=== PATIENT | male | born 1970 | race Caucasian/White ===

== ENCOUNTER 2021-05-24 07:15 | Inpatient (IN) | payer MEDICAID ==
[~2021-05-24 07:15] MED LIST: Dexamethasone 4 MG/ML SDV ONE; Glycopyrrolate 0.2 MG/ML 5 ML MDV ONE; Neostigmine Methylsulfate 1 MG/ML 5 ML Syringe ONE; Ondansetron 4 MG/2 ML SDV ONE; Propofol 200 MG/20 ML SDV ONE; Rocuronium 50 MG/5 ML Vial ONE; Succinylcholine 200 MG/10 ML MDV ONE; cefOXitin 2 GM Vial ONE; fentaNYL 250 MCG/5 ML SDV ONE
[2021-05-24] MEDS ORDERED: Acetaminophen 500 MG Tab PO ONE (07:30)
[2021-05-24] MEDS ORDERED: Scopolamine 1.5 MG Transdermal Patch TOP SCH (07:45)
[2021-05-24] MEDS: Celecoxib 200 MG Cap PO SCH ×2 (07:54→18:52)
[2021-05-24] MEDS: Dextrose 5%-Lactated Ringers 1,000 ML IV SCH ×4 (08:10→23:21)
[2021-05-24] MEDS ORDERED: fentaNYL 250 MCG/5 ML SDV ONE ×2 (09:30→10:58)
[2021-05-24] MEDS ORDERED: cefOXitin 2 GM in Sodium Chloride 0.9% 50 ML IV ONE (09:30)
[2021-05-24] MEDS ORDERED: Ketamine 50 MG in Sodium Chloride 0.9% 49.5 ML IV SCH (09:45)
[2021-05-24] MEDS ORDERED: Ketamine 500 MG/5 ML MDV IV SCH (09:45)
[2021-05-24] MEDS ORDERED: Rocuronium 50 MG/5 ML Vial ONE (10:45)
[2021-05-24] MEDS ORDERED: Meropenem 500 MG SDV ONE (11:09)
[2021-05-24] MEDS ORDERED: HYDROmorphone 0.5 MG/0.5 ML Syringe IVPUSH PRN (15:01)
[2021-05-24] MEDS ORDERED: HYDROmorphone 1 MG/ML Syringe IV PRN (15:02)
[2021-05-24] MEDS ORDERED: Calcium Gluconate 10% 1 GM/10 ML SDV IVPUSH PRN (16:00)
[2021-05-24] MEDS ORDERED: Labetalol 20 MG/4 ML Syringe IVPUSH PRN (16:00)
[2021-05-24] MEDS ORDERED: traMADol 50 MG Tab PO PRN (16:00)
[2021-05-24] MEDS ORDERED: Ondansetron 4 MG/2 ML SDV IVPUSH PRN (16:00)
[2021-05-24] MEDS ORDERED: Acetaminophen 500 MG Tab PO PRN (16:00)
[2021-05-24] MEDS ORDERED: diphenhydrAMINE 50 MG/ML SDV IVPUSH PRN (16:00)
[2021-05-24] MEDS ORDERED: hydrOXYzine HCL 100 MG/2 ML SDV IM PRN (16:00)
[2021-05-24] MEDS ORDERED: Metoclopramide 10 MG/2 ML SDV IVPUSH PRN (16:00)
[2021-05-24] MEDS: cefOXitin 2 GM in Sodium Chloride 0.9% 50 ML IV SCH ×2 (16:18→22:01)
[2021-05-24] MEDS: MVI, Adult with Vitamin K 10 ML, Thiamine 200 MG, Zinc/Copper/Manganese/Selenium 1 ML i... IV SCH ×4 (16:18)
[2021-05-24] MEDS: Pantoprazole 40 MG Vial IVPUSH SCH (16:18)
[2021-05-24] MEDS: Acetaminophen 500 MG Tab PO SCH ×2 (16:18→23:47)
[2021-05-24] MEDS: oxyCODONE 5 MG Tab PO PRN (17:34)
[2021-05-24] MEDS: Heparin Sodium 5,000 Units/ML Vial SUBCUT SCH (17:34)
[2021-05-24] MEDS: Cyclobenzaprine 10 MG Tab PO PRN (18:35)
[2021-05-25] MEDS ORDERED: Iopamidol 612 MG/ML 50 ML SDV PO STA (01:45)
[2021-05-25] MEDS: oxyCODONE 5 MG Tab PO PRN (02:17)
[2021-05-25] MEDS: Heparin Sodium 5,000 Units/ML Vial SUBCUT SCH ×2 (02:20→02:29)
[2021-05-25] MEDS: cefOXitin 2 GM in Sodium Chloride 0.9% 50 ML IV SCH ×4 (03:49→22:12)
[2021-05-25] MEDS: Dextrose 5%-Lactated Ringers 1,000 ML IV SCH (05:15)
[2021-05-25] MEDS ORDERED: Ondansetron 4 MG Tab.DIS PO PRN (06:42)
[2021-05-25] MEDS: Acetaminophen 500 MG Tab PO SCH ×3 (07:46→23:28)
[2021-05-25] MEDS: hydrOXYzine HCl 25 MG Tab PO PRN (07:46)
[2021-05-25] MEDS: Cyclobenzaprine 10 MG Tab PO PRN (08:48)
[2021-05-25] MEDS: Celecoxib 200 MG Cap PO SCH ×2 (08:50→22:23)
[2021-05-25] MEDS: SCOPOLAMINE PATCH CHECK TOP SCH (08:50)
[2021-05-25] MEDS: Sertraline 50 MG Tab PO SCH (08:53)
[2021-05-25] MEDS: buPROPion 150 MG Tab.ER PO SCH (08:53)
--- NOTE | 2021-05-25 09:07 | CR ---
UGI Limited HISTORY: Postbariatric surgery FINDINGS: Patient swallowed water-soluble contrast. Upright views of the abdomen show no evidence of extravasation or obstruction. There is a surgical drain in the left upper quadrant. IMPRESSION: Status post bariatric surgery No extravasation or obstruction seen
[2021-05-25] MEDS: Potassium Phos in 0.9 % NaCl 15 MMOL in Premix Bag 1 BAG IV SCH ×6 (11:23→18:16)
[2021-05-25] MEDS ORDERED: diphenhydrAMINE 50 MG/ML SDV IVPUSH PRN (11:50)
[2021-05-25] MEDS ORDERED: diphenhydrAMINE 25 MG Cap PO PRN (11:50)
[2021-05-25] MEDS ORDERED: Ondansetron 4 MG/2 ML SDV IVPUSH PRN (11:50)
[2021-05-25] MEDS ORDERED: Naloxone 0.4 MG/ML SDV IVPUSH PRN (11:50)
[2021-05-25] MEDS ORDERED: HYDROmorphone/Normal Saline 15 MG/30 ML PCA IV PRN (12:00)
[2021-05-25] MEDS: MVI, Adult with Vitamin K 10 ML, Thiamine 200 MG, Zinc/Copper/Manganese/Selenium 1 ML i... IV SCH ×4 (17:24)
[2021-05-25] MEDS: Pantoprazole 40 MG Vial IVPUSH SCH (17:25)
[2021-05-25] MEDS ORDERED: Lactated Ringers 750 ML IV ONE (20:53)
[2021-05-26] MEDS ORDERED: Iopamidol 612 MG/ML 50 ML SDV PO STA (03:58)
[2021-05-26] MEDS: cefOXitin 2 GM in Sodium Chloride 0.9% 50 ML IV SCH ×2 (04:15→10:39)
--- NOTE | 2021-05-26 07:17 | PN ---
DATE OF SERVICE: 05/25/2021 SUBJECTIVE: Vahe is postop day 1. His upper GI was normal. He has been up ambulating, has not used his incentive spirometer yet. Oral intake 790, urine output via Devi catheter is 1780. ZABRINA drain put out 400 mL of a light red drainage. Vital signs have been stable. He has had quite a bit of pain in his left shoulder and chest, it improved with passing some flatus. He has been sleeping in the chair since around 2 a.m. He has had Flexeril, oxycodone, IV Dilaudid, and tramadol in addition to the routine energy protocol. Remainder of review of systems negative for any pertinent positives and negatives. OBJECTIVE: GENERAL: Vahe is a pleasant 50-year-old male. He is sitting up in the chair, sleeping. VITAL SIGNS: TPR 95, 91, 16. Blood pressure 142/61. HEENT: Negative. NECK: Supple. HEART: Regular rate and rhythm. LUNGS: Clear. ABDOMEN: Dressing dry and intact. ZABRINA drain is light red in color, amount as noted. Abdominal binder is on. EXTREMITIES: Without peripheral edema. ASSESSMENT: Diagnostic laparoscopy with: 1. Laparoscopic duodenal switch. 2. Liver biopsy. 3. Repair of diaphragmatic hernia. 4. Excision of substernal lipoma. 5. Small-bowel strictureplasty. POSTOPERATIVE DIAGNOSES: 1. Morbid obesity. 2. Hepatomegaly. 3. Diaphragmatic hernia. 4. Mediastinal lipoma. 5. Small bowel stricture. 6. Date of procedure: 05/24/2021. Surgeon: Mannie Pennington MD. PLAN: 1. Discontinue Devi catheter. 2. Decrease IV to 100 mL per hour. 3. Step 2 gastric bypass diet with no cereal. 4. Discontinue Devi catheter. 5. Discontinue heparin. 6. K-Phos 45 millimoles IV one time. 7. Discontinue continuous pulse ox. 8. Discontinue telemetry. 9. Atarax 50 mg q.4 hours p.r.n. pain. 10.Communication order, 3 med cups per hour, one q.20 minutes, record at bedside. 11.Stressed the importance of using incentive spirometer 10 times every hour while awake to avoid pneumonia. 12.Ambulate at least 6 times daily. 13.We will evaluate p.r.n. or in a.m. Dilcia Moreno PA-C /[id number]
[2021-05-26] MEDS: Dextrose 5%-Lactated Ringers 1,000 ML IV SCH ×2 (08:00→23:50)
--- NOTE | 2021-05-26 08:02 | PN ---
DATE OF SERVICE: 05/26/2021 SUBJECTIVE: Vahe had an episode of severe pain yesterday in that left upper shoulder. He was started on a REPRODUCTIVE ENDOCRINOLOGIST, had an upper GI this morning, it was negative. Had 1 L of LR bolus. His urine output increased after that. Oral intake was 1190, output 550 that was recorded. ZABRINA drain put out 135 mL of a light red drainage. He is using Dilaudid REPRODUCTIVE ENDOCRINOLOGIST and states his pain is controlled. REVIEW OF SYSTEMS: Remainder of review of systems negative for any pertinent positives and negatives. OBJECTIVE: GENERAL: Vahe is a 50-year-old male. He is quite sleepy. VITAL SIGNS: TPR is 94.9, 93, 18, blood pressure 116/56. HEENT: Negative. NECK: Supple. HEART: Regular rate and rhythm. LUNGS: Clear. ABDOMEN: Dressings dry and intact. Abdominal binder is on. ZABRINA drain as above. EXTREMITIES: Without peripheral edema. ASSESSMENT: Diagnostic laparoscopy with: 1. Laparoscopic duodenal switch. 2. Liver biopsy. 3. Repair of diaphragmatic hernia. 4. Excision of mediastinal lipoma. 5. Small bowel strictureplasty. POSTOPERATIVE DIAGNOSES: 1. Morbid obesity. 2. Hepatomegaly. 3. Diaphragmatic hernia. 4. Mediastinal lipoma. 5. Small bowel strictureplasty. PLAN: 1. Discontinue REPRODUCTIVE ENDOCRINOLOGIST. 2. Discontinue continuous pulse ox. 3. Step 2 gastric bypass diet without cereal. 4. Dilaudid 2 to 4 mg q.4 hours p.r.n. pain. 5. Ambulation encouraged short distances at least 6 times daily. 6. Use incentive spirometer 10 times every hour while awake. 7. When the patient will be discharged, will be given Lovenox [address] home and 100 of Lovenox for his postop appointment back to [facility]. 8. We will evaluate p.r.n. or in a.m. Dilcia Moreno PA-C /[id number]
[2021-05-26] MEDS ORDERED: Cyanocobalamin (Vitamin B12) 1,000 MCG/ML SDV IM ONE (09:00)
[2021-05-26] MEDS: HYDROmorphone 2 MG Tab PO PRN ×4 (09:16→23:53)
[2021-05-26] MEDS: Acetaminophen 500 MG Tab PO SCH ×3 (09:17→23:50)
[2021-05-26] MEDS: Celecoxib 200 MG Cap PO SCH ×2 (09:18→21:28)
[2021-05-26] MEDS: Sertraline 50 MG Tab PO SCH (09:18)
[2021-05-26] MEDS: SCOPOLAMINE PATCH CHECK TOP SCH (09:18)
[2021-05-26] MEDS: buPROPion 150 MG Tab.ER PO SCH (09:18)
--- NOTE | 2021-05-26 09:43 | CR ---
UGI Limited HISTORY: Postbariatric surgery FINDINGS: Patient swallowed water-soluble contrast. Upright views of the abdomen show no evidence of extravasation or obstruction. There is a surgical drain in the left upper quadrant. There is contrast in the right colon from prior study. IMPRESSION: Status post bariatric surgery No extravasation or obstruction seen
[2021-05-26] MEDS ORDERED: Pantoprazole 40 MG Delayed-Release Granules 1 Packet PO SCH (16:30)
[2021-05-26] MEDS ORDERED: Tranexamic Acid 1,000 MG in Sodium Chloride 0.9% 50 ML IV ONE (21:38)
[2021-05-26] MEDS ORDERED: Coagulation Factor VIIa Recombinant (per MCG) 2 MG Vial IVPUSH ONE (21:50)
[2021-05-26] MEDS ORDERED: Furosemide 20 MG/2 ML VIAL IVPUSH ONE (22:38)
[2021-05-27] MEDS: HYDROmorphone 2 MG Tab PO PRN ×5 (04:00→21:12)
[2021-05-27] MEDS: hydrOXYzine HCl 25 MG Tab PO PRN ×3 (04:00→19:31)
[2021-05-27] MEDS ORDERED: Tranexamic Acid 1,000 MG in Sodium Chloride 0.9% 50 ML IV ONE ×2 (06:51→07:48)
[2021-05-27] MEDS ORDERED: Albuterol/Ipratropium 3.0-0.5 MG/3 ML Neb Soln NEB PRN (07:56)
[2021-05-27] MEDS ORDERED: Albuterol/Ipratropium 3.0-0.5 MG/3 ML Neb Soln NEB ONE (08:00)
[2021-05-27] MEDS: Acetaminophen 500 MG Tab PO SCH ×3 (08:21→23:45)
[2021-05-27] MEDS: buPROPion 150 MG Tab.ER PO SCH (08:45)
[2021-05-27] MEDS: Sertraline 50 MG Tab PO SCH (08:45)
[2021-05-27] MEDS: Celecoxib 200 MG Cap PO SCH ×2 (08:45→21:12)
--- NOTE | 2021-05-27 08:53 | CR ---
CHEST: 2 view CLINICAL HISTORY:Postop, short of breath COMPARISON:None FINDINGS: Heart size and pulmonary vascularity are normal. There are streaky and patchy density in both infrahilar regions bilaterally. This is similar to a upright abdominal image on 05/26/2021 there may be some minimal improvement. There are atherosclerotic changes in the aorta. IMPRESSION: This are some patchy and streaky densities in both lung bases. This may represent some postop atelectasis. Minimal infiltrate is felt less likely but not excluded No effusion
[2021-05-27] MEDS ORDERED: Coagulation Factor VIIa Recombinant (per MCG) 2 MG Vial IVPUSH ONE (09:00)
--- NOTE | 2021-05-27 09:32 | PN ---
DATE OF SERVICE: 05/27/2021 SUBJECTIVE: Vahe is postop day #3. Last evening, he had increase in shortness of breath and his ZABRINA drain remained to be draining red drainage, so he was given tranexamic acid 1 g IV and Factor VII 2000 mg IV. This morning, his hemoglobin is 9.7. Oral intake was 3060. Urine output was 500 recorded plus voids. ZABRINA drain put out 500 mL of a dark red drainage. He reports a headache behind his eyes, and last night had some blurred vision. He states the blurred vision is not too bad this morning. Continues to report left chest and shoulder pain which increases with taking a deep breath and movement. States that it is a 7/10. He is taking Tylenol 1000 mg every 8 hours, Celebrex 200 twice daily, Flexeril 10 mg, and Dilaudid 2 to 4 mg every 4 hours. He did have Vistaril 100 mg IM and an oral dose of hydroxyzine 50 mg 1 time for pain. Reports an increased shortness of breath, which he voiced quite a bit of concern about and he is using his incentive spirometer and he is walking as much as he is able. His states that he tries to walk, but then is dizzy and weak and short of breath. REVIEW OF SYSTEMS: Remainder of review of systems negative for any pertinent positives and negatives. OBJECTIVE: GENERAL: Vahe is a pleasant 50-year-old male. He is alert and orientated, but quite quiet. VITAL SIGNS: TPR 98.4, 76, 16, pulse oximetry 96% on 2 L of O2 per nasal cannula. HEENT: Negative. NECK: Supple. HEART: Regular rate and rhythm. LUNGS: Revealed decreased breath sounds. Some rales are heard in the left base with pain in taking a deep breath. It is hard to really hear. The breath sounds were not optimal. ABDOMEN: Negative. ZABRINA drain as above. Dressings are on. There is some pink drainage noted on the dressing around the left ZABRINA drain site. Abdominal binder is on. EXTREMITIES: Revealed trace peripheral edema. ASSESSMENT: 1. Shortness of breath. 2. Persistent left chest and shoulder pain. 3. New headache. 4. Diagnostic laparoscopy with: a. Laparoscopic duodenal switch. b. Liver biopsy. c. Repair of diaphragmatic hernia. d. Excision of mediastinal lipoma. e. Small bowel strictureplasty. POSTOPERATIVE DIAGNOSES: 1. Morbid obesity. 2. Hepatomegaly. 3. Diaphragmatic hernia. 4. Mediastinal lipoma. 5. Small bowel strictureplasty. 6. Date of procedure: 05/24/2021. Mannie Pennington MD. PLAN: 1. Check chest x-ray PA and lateral. 2. DuoNebs q.6 hours scheduled and p.r.n. shortness of breath. 3. Tranexamic acid 1 g IV now, followed by. 4. Factor VII 2000 mg IV. 5. Decrease IV to 60 mL per hour. 6. Check chest x-ray PA and lateral. 7. Continue to ambulate and use incentive spirometer. 8. We will evaluate p.r.n. or in a.m. Dilcia Moreno PA-C /[id number]
[2021-05-27] MEDS: Albuterol/Ipratropium 3.0-0.5 MG/3 ML Neb Soln NEB SCH ×2 (12:32→19:31)
[2021-05-27] MEDS: Dextrose 5%-Lactated Ringers 1,000 ML IV SCH (13:28)
[2021-05-27] MEDS: Bisacodyl 5 MG Tab PO SCH ×2 (15:34→21:11)
[2021-05-27] MEDS: Magnesium Hydroxide 400 MG/5 ML Susp 30 ML Cup PO SCH ×2 (15:35→21:12)
[2021-05-27] MEDS ORDERED: Pantoprazole 40 MG Vial IV SCH (16:30)
[2021-05-28] MEDS: Albuterol/Ipratropium 3.0-0.5 MG/3 ML Neb Soln NEB SCH ×2 (01:58→07:15)
[2021-05-28] MEDS: HYDROmorphone 2 MG Tab PO PRN ×3 (02:03→09:42)
[2021-05-28] MEDS: Dextrose 5%-Lactated Ringers 1,000 ML IV SCH (05:41)
[2021-05-28] MEDS: Magnesium Hydroxide 400 MG/5 ML Susp 30 ML Cup PO SCH (09:43)
[2021-05-28] MEDS: Celecoxib 200 MG Cap PO SCH (09:43)
[2021-05-28] MEDS: Acetaminophen 500 MG Tab PO SCH (09:43)
[2021-05-28] MEDS: Sertraline 50 MG Tab PO SCH (09:44)
[2021-05-28] MEDS: Bisacodyl 5 MG Tab PO SCH (09:44)
[2021-05-28] MEDS: buPROPion 150 MG Tab.ER PO SCH (09:44)
--- NOTE | 2021-05-29 10:12 | DISCH ---
ADMISSION DIAGNOSES: 1. Morbid obesity, BMI 54.6. 2. Dyslipidemia. 3. Mild episode of recurrent major depression. HISTORY: Vahe Pearson is a pleasant 50-year-old male with longstanding history of morbid obesity and increasing comorbidities. After preoperative evaluation and discussion of possible risks and possible complications, he wished to proceed with surgical procedure. HOSPITAL COURSE: Vahe had his surgery on 05/24/2021. He had difficulty with pain management and he had most of his pain in his left upper shoulder blade. He was given Flexeril, oxycodone, IV Dilaudid, and tramadol in addition to the routine energy protocol and nothing seemed to help his pain. On 05/25/2021, he was given tranexamic acid 1 g and Factor VII 200 mcg IV. He received another dose on 05/26/2021, and a third dose on 05/27/2021. He has had an increased amount of pain with taking a deep breath. Chest x-ray was done. He was started on DuoNebs and it did seem to make a difference. Vahe was started on oral pain medication of Dilaudid along with his Tylenol and Celebrex. Labs this morning, hemoglobin went from 12.9 to 10.9 to 9.7 and 8.8. Electrolytes remained within normal limits. Bilirubin was slightly elevated on 05/27/2021 at 1.3. Vahe had better pain control. Activity was good. Oral intake adequate. Output was adequate. Afebrile, up ambulating. He was able to be discharged to home on 05/28/2021. PHYSICAL EXAMINATION: GENERAL: Vahe Pearson is a pleasant 50-year-old male. VITAL SIGNS: Height is 6 feet 1 inch, weight is 414 pounds, BMI 54.6. TPR is 98.2, 67, 18, blood pressure 128/60. HEENT: Negative. NECK: Supple. HEART: Regular rate and rhythm. LUNGS: Clear. ABDOMEN: Soft, nontender. ZABRINA drain will be removed. Abdominal binder is on. EXTREMITIES: Without peripheral edema. DISPOSITION: Discharged to home. CONDITION: Stable and improving. HOME MEDICATIONS: 1. Dilaudid 2 mg p.o. q.4 hours p.r.n. pain, #12. 2. Celebrex 200 mg p.o. b.i.d., #28. 3. Tylenol Extra Strength 500 mg take 2 p.o. q.6 hours p.r.n. mild pain. 4. Zofran ODT 4 mg p.o. q.4 hours p.r.n. nausea. FOLLOWUP APPOINTMENT: With Dilcia Moreno PA-C, on 06/03/2021 at 11 a.m., and he is to have a CBC, CMP prior to that appointment. DIET: Step 2 gastric bypass diet with no cereal until 06/25/2021, and to drink 8 to 10 glasses of water a day. ACTIVITY: No lifting greater than 10 pounds for 2 weeks. Walk at least 6 times daily inside your home. Driving: Do not drive for 1 week. DISCHARGE INSTRUCTIONS: Shower/bathing: May shower. Wound incision care: Keep operative site clean and dry. Wear abdominal binder for 2 weeks and then as tolerated. Notify provider if any fever, increased pain, swelling, redness, drainage, nausea, vomiting, and use incentive spirometer 10 times every hour while awake. /[id number]
--- NOTE | 2021-05-31 12:44 | OR ---
DATE OF PROCEDURE: 05/24/2021 SURGEON: Mannie Pennington MD PREOPERATIVE DIAGNOSIS: Morbid obesity. POSTOPERATIVE DIAGNOSES: 1. Morbid obesity. 2. Marked hepatomegaly. 3. Paraesophageal diaphragmatic hernia. 4. Mediastinal lipoma. 5. Small bowel stricture where small bowel was adherent to previously placed periumbilical mesh. OPERATIVE PROCEDURES: Diagnostic laparoscopy with: 1. Laparoscopic duodenal switch (39256). 2. Pako-Cut needle liver biopsy (57854). 3. Repair of paraesophageal diaphragmatic hernia (40124). 4. Excision of mediastinal lipoma (37720). 5. Small bowel strictureplasty (27496). ANESTHESIA: General. MOTOR EQUIPMENT SERGEANT: Dilcia Moreno PA-C. INDICATIONS FOR PROCEDURE: This is a 50-year-old presenting with longstanding morbid obesity and increasingly significant comorbidities. After preoperative evaluation and discussion, he wished to proceed with a duodenal switch. Potential risks including bleeding, infection, leaks from various GI tract closures, problems with bowel obstruction over time as well as possibility of cardiopulmonary, septic, or hemorrhagic complications leading to were discussed, and the patient wishes to proceed. DESCRIPTION OF PROCEDURE: The patient was taken to the operating room. After general endotracheal anesthesia was induced, a Devi catheter was inserted and the abdomen prepped and draped. The patient was placed into a lithotomy position. 20 cm inferior and 5 cm left of the xiphoid process, a transverse incision was made and the peritoneal cavity entered under direct vision with an Optiview trocar, inflated 15 mmHg pressure of CO2. Laparoscope was then reinserted. No underlying trocar insertion site injuries were seen. Bilateral transversus abdominis plane blocks were placed, following which 6 additional trocars were placed across the upper and mid abdomen. The patient was noted to have a markedly enlarged liver which was grossly fatty infiltrated. Pako-Cut needle biopsy was obtained from the left lobe of liver. Minimal bleeding from the biopsy site was controlled with electrocautery. At this point, the patient was noted to have quite a bit in the way of adhesions between the periumbilical mesh, which was used for previous hernia repair at that site. These were primarily to the omentum. This area was taken down with Harmonic scalpel and skin luis felipe. There was 1 adherent area of small-bowel. This appeared to be relatively mid to proximal small bowel and the plan is to take down with sharp dissection. He was noted to have a stricture in it. This was corrected by means of antimesenteric opening at the point of stricturing and single internal firing of the Endo-ELODIA 60 mm stapler. Common opening was then closed transversely with the same stapler. In this case, there was no mesenteric defect, and the angles anastomosed and reinforced with some 3-0 silk stitch and fibrin sealant. At this point, the small bowel was then successfully freed up and was identified at the ileocecal valve and traced back 300 cm proximal to that point. This was then noted to be mobile enough to easily come up to the duodenum and this confirmed that we would likely be able to complete the duodenal switch in 1 stage. The liver was then retracted anteriorly. The patient was noted to have moderate-sized paraesophageal diaphragmatic hernia. This contained some perigastric fat along with some omentum. The hernia was reduced. The peritoneum overlying was incised downward. During the course of dissection, mediastinal lipoma was encountered and this was excised to facilitate more adequate crural repair, which was accomplished with some 0 Ethibond sutures placed anteriorly with 0 Ethibond stitch reinforced with PTFE pledgets. The pyloric channel was then marked with electrocautery, and the omentum was then initially divided in the mid greater curvature with Harmonic Scalpel. This then progressed proximally across the short gastric vessels including the highest and posterior short gastric vessels. The stomach was then dissected free from the left crura to avoid any cul-de-sac of stomach in that area. The dissection continued distally across the level of pylorus and then 4 cm distal to it, again with Harmonic scalpel. The sleeve gastrectomy phase was then initiated with marking of the antrum beginning 6 cm proximal to the pylorus coming across the incisura angularis without overly tightening that and then entered the area of the lesser curvature. After these cautery [place] were placed, first 3 firings were with ELODIA unreinforced black loads. At that point, a 40-Mongolian chest tube was placed orally per Anesthesia, positioned along the lesser curvature of the stomach. Remainder of the sleeve gastrectomy stapling was then accomplished with reinforced black loads, and at that point, the resectional phase appeared to be satisfactorily completed and the resected stomach was placed off to the side. At this point, dissection 4 cm distal to the pylorus was accomplished posteriorly and the duodenum then divided 4 cm distal to the pylorus with reinforced purple load using a ELODIA 45 mm stapler. Then, some of the lesser omentum and the area around the proximal duodenum and pelvis was divided, which allowed further dropping down of duodenum to provide a lesser amount of tension at the subsequent duodenal ileostomy. The small bowel was then 300 cm proximal to the ileocecal valve was sutured. Initially, the superior aspect was divided in the proximal duodenum with 3-0 Vicryl stitch and entered the inferior aspect thus bringing the ileum and the divided proximal duodenum [id number]. One additional stitch just inferior to the lower stitch was then placed to facilitate manipulation of the anastomosis during its construction. Small openings were then made in the inferior aspect of the duodenum and adjacent ileum, and a 3 mm ELODIA carmona load was then placed into the area of the anastomosis and this was then fired. The common opening was then closed with 3 sutures. These were stay sutures, 1 superior, 1 in the middle, and 1 in the inferior aspect of the common opening. These were then lifted and the area closed with a ELODIA purple load. That latter staple line was reinforced with seromuscular 3-0 Vicryl stitch. Fibrin sealant was then applied around the anastomosis and then 2 additional sutures between the more proximal ileum and adjacent antrum and then omentum were placed to facilitate a distal direction flow of the ingested food coming out of the duodenum. We felt at this point that the mesentery was tight enough that subsequent conversion to a Amilcar-en-Y type configuration would be contraindicated as it would put the present duodenal ileostomy at risk for increased tension and leak, and this portion was then withheld knowing that it could be done at a later stage if necessary. Following this, the leak test was accomplished with injection of air into the sleeve gastrectomy. Air was noted to flow across the duodenal ileostomy into the ileum and no leaks were noted along the sleeve gastrectomy staple line, which at that point had been covered with fibrin sealant as well. The stomach specimen was then removed and the area of dissection was inspected. Throughout the case, the patient had somewhat more oozing from the staple lines and as such than what would be typical, but at this point, there appeared to be good hemostasis in all areas and a single Leonard-Ramirez drain was taken out through the left lateral trocar site after the stomach specimen had been removed and positioned around the esophagogastric junction and from there up into the splenic fossa. The trocars were then sequentially removed and peritoneal cavity deflated. Incisions were closed with some 4-0 Vicryl stitch and the drain was fixed with 4-0 Vicryl stitch as well. The patient was taken to the recovery room in satisfactory condition. Physician accounts receivable assistant, Dilcia Moreno, played an essential role in assisting in this case, helping to position the patient, retract structures as needed, as well as suturing and cutting sutures when indicated. Her presence improved patient safety and decreased operative time. Mannie Pennington MD /[id number]
== END 2021-05-28 10:45 | disposition home or self-care (01) | DRG 327 ==
LOC: EDSTATUS 07:15 → JP.SDS 07:26 → JP.SDSSCHI 13:30 → JP.MS 13:31
PROVIDERS: ADMIT Surgery; ATTEND Surgery
PROC: 0WBC4ZZ Excision of Mediastinum, Percutaneous Endoscopic Approach (ICD-10-PCS; principal; 2021-05-24)
PROC: 0FB24ZX Excision of Left Lobe Liver, Percutaneous Endoscopic Approach, Diagnostic (ICD-10-PCS; principal; 2021-05-24)
PROC: 0DQ84ZZ Repair Small Intestine, Percutaneous Endoscopic Approach (ICD-10-PCS; principal; 2021-05-24)
PROC: 0BQT4ZZ Repair Diaphragm, Percutaneous Endoscopic Approach (ICD-10-PCS; principal; 2021-05-24)
PROC: 0D194ZB Bypass Duodenum to Ileum, Percutaneous Endoscopic Approach (ICD-10-PCS; principal; 2021-05-24)
DX: K44.9 Diaphragmatic hernia without obstruction or gangrene (principal); F33.0 Major depressive disorder, recurrent, mild; K56.699 Other intestinal obstruction unspecified as to partial versus complete obstruction; Z68.43 Body mass index [BMI] 50.0-59.9, adult; E66.01 Morbid (severe) obesity due to excess calories; E78.5 Hyperlipidemia, unspecified; R06.02 Shortness of breath; R16.0 Hepatomegaly, not elsewhere classified; D17.79 Benign lipomatous neoplasm of other sites; R51.9 Headache, unspecified; R07.9 Chest pain, unspecified; M25.512 Pain in left shoulder
CPT/HCPCS: 36415; 71046; 71046-26; 74240; 74240-26; 80053; 82947; 83735; 83880; 84100; 85025; 85027; 86850; 86900; 86901; 88304; 88305; 88307; 88313; 94640; 94762; A9270-GY; C9113; J0171; J0330; J0694; J1100; J1170; J1644; J1940; J2185; J2405; J2704; J2710; J2795; J3010; J3410; J3411; J3420; J3475; J3490; J7050; J7120; J7121; J7189; J7620-GY; Q9967

== ENCOUNTER 2021-06-07 11:51 | Inpatient (IN) | payer MEDICAID ==
[2021-06-07] MEDS ORDERED: Iopamidol 612 MG/ML 50 ML SDV PO ONE (12:44)
[2021-06-07] MEDS ORDERED: Iopamidol 612 MG/ML 150 ML Bottle IV ONE (12:45)
[2021-06-07] MEDS ORDERED: Acetaminophen 325 MG Tab PO PRN (13:01)
[2021-06-07] MEDS ORDERED: Acetaminophen 650 MG Supp RECTAL PRN (13:02)
--- NOTE | 2021-06-07 13:49 | CT ---
Abdomen Pelvis w Cont CLINICAL HISTORY: Abdominal abscess, status post duodenal switch COMPARISON: 05/31/2021. TECHNIQUE: Transverse scans were obtained from the base of the lungs to the pubic symphysis following oral contrast and IV infusion of contrast.Auto dosage reduction and iterative reconstructiontechniques employed. FINDINGS: Just above the umbilicus near the distal anastomosis is a 3.2 x 6.7 x 4.7 cm fluid collection. There is an air-fluid level within the small amount of air anteriorly. Fluid is accumulated since the prior study. The lung bases are clear. The liver is free of mass or biliary dilatation. The gallbladder has a normal appearance. The spleen has a normal size and shape. The pancreas shows no mass or inflammatory change.. The adrenal glands appear normal . The kidneys show no mass, stones or hydronephrosis. The ureters have normal course and contour. The bladder has a normal appearance The aorta has a normal contour. There is no suspicious retroperitoneal adenopathy. IMPRESSION: Increasing anterior abdominal fluid collection with air-fluid level just above the umbilicus abutting the anterior peritoneum. This is suspect for postoperative abscess near the distal anastomosis.
[2021-06-07] MEDS: Pantoprazole 40 MG Vial IV SCH ×2 (13:53→22:01)
[2021-06-07] MEDS: Sodium Chloride 0.9% 10 ML Syringe FLUSH ONE ×2 (13:54→16:12)
[2021-06-07] MEDS ORDERED: MVI, Adult with Vitamin K 10 ML in Lactated Ringers 1,000 ML IV ONE ×2 (14:00)
[2021-06-07] MEDS: Meropenem 500 MG in Sodium Chloride 0.9% 50 ML IV SCH ×2 (14:02→19:57)
[2021-06-07] MEDS ORDERED: Lidocaine 1% 20 ML MDV INJECT ONE (14:25)
--- NOTE | 2021-06-07 15:27 | PCM.HP.2 ---
H&P History of Present Illness - General Date of Service: 06/07/21 Admit Problem/Dx: Admission Diagnosis/Problem Admission Diagnosis/Problem Abdominal abscess Source of Information: Patient History Limitations: Reports: No Limitations - History of Present Illness Initial Comments - Free Text/Narative: Vahe had a Duodenal Switch on 05/24/2021 complicated by post op bleeding. He was given Tranexamic acid 1 gram and Factor VII mcg IV the night of surgery. he recieved another dose on 05/25/2021 and a third dose on 05/27/2021. Hemoglobin went from 12.9 to 10.9, 9.7 tro 8.8. Biliruben was elevated at 1.3. Vahe was discharged to home on 05/28/21 and did very well until 05/31/2021 when he developed severe right middle and right lower abdominal pain. After going to the closest ED he was admitted to the [facility] on until , 06/03/2021. He was hospitalized for intra abdominal abscess and IV fluids. Since getting discharged from the hospital he states he is getting IV antibiotics at home through his PIC line once daily. Very nauseated, not eating or drinking, smells make him gag and he has diarrhea 5 stools daily. Denies abdominal pain. states he is having some mid epigastric pain and shortness of breath. Abdominal Pain Score (Numeric/FACES): 3 - Related Data Allergies/Adverse Reactions: Allergies Allergy/AdvReac Type Severity Reaction Status Date / Time No Known Allergies Allergy Verified 05/24/21 07:56 Home Medications: Home Meds Sertraline [Zoloft] 100 mg PO DAILY 05/18/21 [History] atorvaSTATin [Lipitor] 40 mg PO BEDTIME 05/18/21 [History] buPROPion HCL [Bupropion Xl] 150 mg PO DAILY 05/18/21 [History] Acetaminophen [Tylenol Extra Strength] 500 mg PO Q6H PRN #1 bottle 05/28/21 [Rx] HYDROmorphone [Dilaudid] 2 mg PO Q4H PRN #12 tablet 05/28/21 [Rx] Ondansetron [Zofran ODT] 4 mg PO Q4H PRN #30 tab.dis 05/28/21 [Rx] Past Medical History - Past Health History Medical/Surgical History: Denies Medical/Surgical History Cardiovascular History: Reports: High Cholesterol, Hypertension Gastrointestinal History: Reports: Other (See Below) Other Gastrointestinal History: gastric ulcers Psychiatric History: Reports: Anxiety, Depression Endocrine/Metabolic History: Reports: Obesity/BMI 30+ - Infectious Disease History Infectious Disease History: Reports: Chicken Pox - Past Surgical History GI Surgical History: Reports: Hernia, Abdominal Social & Family History - Family History Family Medical History: No Pertinent Family History Cardiac: Reports: Heart Failure - Tobacco Use Tobacco Use Status *Q: Former Tobacco User Used Tobacco, but Quit: No - Caffeine Use Caffeine Use: Reports: None - Recreational Drug Use Recreational Drug Use: No H&P Review of Systems - Review of Systems: Review Of Systems: See Below General: Reports: Weakness, Fatigue, Decreased Appetite HEENT: Reports: No Symptoms Pulmonary: Reports: No Symptoms Cardiovascular: Reports: Dyspnea on Exertion Gastrointestinal: Reports: Diarrhea, Decreased Appetite, Nausea Genitourinary: Reports: No Symptoms Musculoskeletal: Reports: No Symptoms Skin: Reports: No Symptoms Psychiatric: Reports: Depression, Mood Lability Neurological: Reports: Dizziness, Weakness Hematologic/Lymphatic: Reports: Anemia, Easy Bleeding Immunologic: Reports: No Symptoms Exam - Exam Exam: See Below - Vital Signs Vital Signs: Last Vital Signs Temp 98.5 F 06/07/21 12:46 Pulse 75 06/07/21 12:46 Resp 18 06/07/21 12:46 BP 150/72 H 06/07/21 12:46 Pulse Ox 99 06/07/21 12:46 Weight: 381 lb - Exam Quality Assessment: Central Line/PICC (right upper arm ) General: Moderate Distress HEENT: PERRLA, Hearing Intact Neck: Supple, Trachea Midline Lungs: Clear to Auscultation, Normal Respiratory Effort Cardiovascular: Regular Rate, Regular Rhythm GI/Abdominal Exam: Soft, No Distention, Tender (in all 4 quadrants ) (Male) Exam: Deferred Rectal (Males) Exam: Deferred Back Exam: Normal Inspection, Full Range of Motion Extremities: Normal Inspection, Normal Range of Motion, Non-Tender, No Pedal Edema Skin: Warm, Dry, Intact Neurological: Cranial Nerves Intact, Reflexes Equal Bilateral Neuro Extensive - Mental Status: Alert, Oriented x3, Normal Mood/Affect, Normal Cognition Neuro Extensive - Motor, Sensory, Reflexes: CN II-XII Intact, Normal Gait Psychiatric: Labile Mood, Depressed - Patient Data Lab Results Last 24 hrs: Laboratory Results - last 24 hr 06/07/21 06/07/21 Range/Units 12:23 12:23 WBC 13.8 H (4.5-11.0) K/uL RBC 4.22 L (4.30-5.90) M/uL Hgb 11.3 L D (12.0-15.0) g/dL Hct 35.9 L (40.0-54.0) % MCV 85 (80-98) fL MCH 27 (27-31) pg MCHC 32 (32-36) % Plt Count 530 H (150-400) K/uL Neut % (Auto) 74.6 H (36-66) % Lymph % (Auto) 15.5 L (24-44) % Callahan % (Auto) 7.2 H (2-6) % Eos % (Auto) 2.0 (2-4) % Baso % (Auto) 0.7 (0-1) % Sodium 142 (140-148) mmol/L Potassium 3.6 (3.6-5.2) mmol/L Chloride 104 (100-108) mmol/L Carbon Dioxide 26 (21-32) mmol/L Anion Gap 11.7 (5.0-14.0) mmol/L BUN 16 (7-18) mg/dL Creatinine 1.1 (0.8-1.3) mg/dL Est Cr Clr Drug Dosing 92.81 mL/min Estimated GFR (MDRD) > 60 (>60) Glucose 91 (74-106) mg/dL Calcium 8.6 (8.5-10.1) mg/dL Phosphorus 2.6 (2.5-4.9) mg/dL Magnesium 2.1 (1.8-2.4) mg/dL Total Bilirubin 0.8 (0.2-1.0) mg/dL AST 40 H D (15-37) U/L ALT 57 (12-78) U/L Alkaline Phosphatase 87 (46-116) U/L Total Protein 7.5 (6.4-8.2) g/dL Albumin 2.7 L (3.4-5.0) g/dL Globulin 4.8 H (2.3-3.5) g/dL Albumin/Globulin Ratio 0.6 L (1.2-2.2) Result Diagrams: 07/26/21 12:23 06/07/21 12:23 Sepsis Event Note - Evaluation Sepsis Screening Result: No Definite Risk - Focused Exam Vital Signs: Vital Signs Temp Pulse Resp BP Pulse Ox 06/07/21 12:46 98.5 F 75 18 150/72 H 99 - Problem List (1) Abdominal abscess SNOMED Code(s): 71925755 ICD Code: LZV9531 - Status: Acute Current Visit: Yes (2) S/P biliopancreatic diversion with duodenal switch SNOMED Code(s): 169427303 ICD Code: Z98.84 - BARIATRIC SURGERY STATUS Status: Acute Current Visit: Yes (3) Anxiety and depression SNOMED Code(s): 604653805 ICD Code: F41.9 - ANXIETY DISORDER, UNSPECIFIED; F32.9 - MAJOR DEPRESSIVE DISORDER, SINGLE EPISODE, UNSPECIFIED Status: Acute Current Visit: Yes Problem List Initiated/Reviewed/Updated: Yes Orders Last 24hrs: Active Orders 24 hr Category Date Time Status Patient Status [ADT] Routine ADT 06/07/21 11:45 Active Ambulate [RC] ASDIRECTED Care 06/07/21 12:09 Active Bariatric Diet [DIET] Diet 06/07/21 Dinner Active Drain Visceral Fluid Perc Cath [CT] Routine Exams 06/07/21 Ordered Guide [CT] Routine Exams 06/07/21 Ordered COVID-19/FLU A+B/RSV [MOLEC] Routine Lab 06/07/21 12:17 Ordered CULTURE BLOOD [BC] Routine Lab 06/07/21 12:23 Received CULTURE BLOOD [BC] Routine Lab 06/07/21 12:37 Received GRAM STAIN [RM] Routine Lab 06/07/21 14:23 Ordered Acetaminophen [TylenoL] Med 06/07/21 13:01 Active 650 mg PO Q4H PRN Acetaminophen [Tylenol] Med 06/07/21 13:02 Active 650 mg RECTAL Q4H PRN Aztreonam [Azactam] 1 gm Med 06/07/21 14:00 Active Sodium Chloride 0.9% [Normal Saline] 50 ml IV Q8H Dextrose 5%-Lactated Ringers 1,000 ml Med 06/07/21 12:30 Active IV ASDIRECTED MVI, Adult with Vitamin K [Infuvite Adult] 10 ml Med 06/07/21 14:00 Active Lactated Ringers [Ringers, Lactated] 1,000 ml IV ONETIME Meropenem [Merrem] 500 mg Med 06/07/21 13:00 Active Sodium Chloride 0.9% [Normal Saline] 50 ml IV Q6H Ondansetron [Zofran] Med 06/07/21 12:36 Active 4 mg IVPUSH Q4H PRN Pantoprazole [ProTONIX IV] Med 06/07/21 13:00 Active 40 mg IV BID Sequential Compression Device [OM.PC] Routine Oth 06/07/21 12:09 Ordered Resuscitation Status Routine Resus Stat 06/07/21 12:09 Ordered Medication Orders Acetaminophen (Acetaminophen 325 Mg Tab) 650 mg PO Q4H PRN PRN Reason: MILD PAIN/FEVER Acetaminophen (Acetaminophen 650 Mg Supp) 650 mg RECTAL Q4H PRN PRN Reason: PAIN/FEVER Dextrose/Lactated Ringer's (Dextrose 5%-Lactated Ringers) 1,000 mls @ 125 mls/hr IV ASDIRECTED COUNT INCLUDES THE [facility] Multivitamins/Minerals 10 ml/ (Lactated Ringer's) 1,010 mls @ 200 mls/hr IV ONETIME ONE Stop: 06/07/21 19:02 Meropenem 500 mg/ Sodium (Chloride) 50 mls @ 100 mls/hr IV Q6H COUNT INCLUDES THE [facility] Last Admin: 06/07/21 14:02 Dose: 100 mls/hr Documented by: LENA Aztreonam 1 gm/ Sodium (Chloride) 50 mls @ 100 mls/hr IV Q8H COUNT INCLUDES THE [facility] Ondansetron HCl (Ondansetron 4 Mg/2 Ml Sdv) 4 mg IVPUSH Q4H PRN PRN Reason: Nausea Pantoprazole Sodium (Pantoprazole 40 Mg Vial) 40 mg IV BID COUNT INCLUDES THE [facility] Last Admin: 06/07/21 13:53 Dose: 40 mg Documented by: LENA Assessment: Abdominal Abscess SP Duodenal Switch Dehydration Normocytic anemia due to iron deficiency Plan: see above orders Admit as Inpatient Plan to be hospitalized 3 nights and 4 days Dilcia Reyes 06/07/2021
--- NOTE | 2021-06-07 16:57 | CT ---
CT-GUIDED PERCUTANEOUS ABSCESS DRAINAGE ABDOMEN CLINICAL HISTORY: Periumbilical abdominal abscess PROCEDURE: Following informed consent patient was placed on the CT table and scanned through the mid abdomen level of a previously described abscess near small bowel anastomosis. Access site was selected just above the umbilicus. Skin was marked. The area was then prepped and draped. A 22-gauge coaxial needle was then advanced to the abdominal wall using CT guidance. Needle was advanced to just anterior to the fluid collection. There was a significant amount of resistance at the level of the peritoneum. Dr. Pennington was contacted at that time to see if there is a history of mesh placement. Needle was advanced through the mesh into the abscess cavity. Aspiration retrieved approximately 10-15 cc of slightly blood-tinged pus. This was sent in sterile container to the laboratory for Gram stain, culture and sensitivity. A 0.028 guidewire was then advanced through the needle and curled within the abscess cavity. Coaxial catheter with stiffener was then advanced over the wire into the cavity. 0.028 wire was removed with the inner catheter and a 0.035 wire was advanced and curled within the cavity. A coaxial drainage catheter with stiff there was then advanced. This would not penetrate the mesh. Wire was left in place and a Yueh needle was then advanced over the wire. It also would not penetrate the mesh. Catheters and guidewires were removed. An 18-gauge spinal needle was then passed into the cavity via CT guidance. Aspiration was performed with only minimal return. There was a 3 cc flushed with sterile saline. Aspiration showed approximately another 5 cc of prostate. Procedure was stopped at this point. IMPRESSION: Catheter drainage of a periumbilical abdominal abscess was unsuccessful due to inability to penetrate a hernia mesh. A 10 to 15 cc of pus were aspirated with a needle and sent to laboratory for analysis
[2021-06-08] MEDS: Dextrose 5%-Lactated Ringers 1,000 ML IV SCH ×2 (00:16→09:55)
[2021-06-08] MEDS: Meropenem 500 MG in Sodium Chloride 0.9% 50 ML IV SCH ×4 (00:23→19:48)
[2021-06-08 05:32] LABS: CORONAVIRUS COVID-19 NAA NEGATIVE (NEGATIVE)
[2021-06-08] MEDS ORDERED: Ketamine 500 MG/5 ML MDV IV SCH ×3 (07:30→10:00)
[2021-06-08] MEDS ORDERED: Succinylcholine 200 MG/10 ML MDV ONE (07:32)
[2021-06-08] MEDS ORDERED: Dexamethasone 4 MG/ML SDV ONE (07:32)
[2021-06-08] MEDS ORDERED: Ondansetron 4 MG/2 ML SDV ONE (07:32)
[2021-06-08] MEDS ORDERED: Neostigmine Methylsulfate 1 MG/ML 5 ML Syringe ONE (07:32)
[2021-06-08] MEDS ORDERED: Rocuronium 50 MG/5 ML Vial ONE (07:32)
[2021-06-08] MEDS ORDERED: Propofol 200 MG/20 ML SDV ONE (07:32)
[2021-06-08] MEDS ORDERED: Glycopyrrolate 0.2 MG/ML 5 ML MDV ONE (07:32)
[2021-06-08] MEDS ORDERED: fentaNYL 250 MCG/5 ML SDV ONE ×2 (07:34→12:11)
[2021-06-08] MEDS ORDERED: Meropenem 500 MG SDV ONE ×2 (09:21→11:30)
[2021-06-08] MEDS: Potassium Chloride 20 MEQ in Premix Bag 1 BAG IV SCH ×2 (09:35→15:08)
[2021-06-08] MEDS: Pantoprazole 40 MG Vial IV SCH (09:35)
[2021-06-08] MEDS ORDERED: Ketamine 50 MG in Sodium Chloride 0.9% 49.5 ML IV SCH (10:00)
--- NOTE | 2021-06-08 10:14 | PN ---
DATE OF SERVICE: 06/08/2021 SUBJECTIVE: Vahe was admitted yesterday for abdominal abscess. He has been on antibiotics. He had a CT-guided percutaneous abscess drainage yesterday, but the drainage of the periumbilical abdominal abscess was unsuccessful due to inability to penetrate the hernia mesh. Vahe has had a good night. He reports he is not nauseated. Hemoglobin this morning was 9.8. Potassium 3.2. He has no other questions or concerns. OBJECTIVE: GENERAL: Vahe is a pleasant 50-year-old male. He is alert and orientated. VITAL SIGNS: TPR is 96.7, 65, 17. Blood pressure 115/61. HEENT: Negative. NECK: Supple. HEART: Regular rate and rhythm. LUNGS: Clear. ABDOMEN: Generalized tenderness is noted. Most of the tenderness is in the periumbilical and to the right of the umbilicus. EXTREMITIES: Without peripheral edema. ASSESSMENT: 1. Abdominal abscess. 2. Status post biliary pancreatic diversion with duodenal switch. 3. Anxiety and depression. PLAN: 1. Schedule and have consent signed for exploratory laparotomy for drainage of abdominal abscess. General anesthesia. TAP block, ketamine bolus and drip, 06/08/2021. Case to follow, n.p.o. Mannie Pennington MD. 2. KCl 40 mEq IV for potassium of 3.2. After preoperative evaluation, discussion of possible risks and possible complications, the patient wishes to proceed with surgical procedure. Dilcia Moreno PA-C /[id number]
[2021-06-08] MEDS ORDERED: Clindamycin Phosphate 600 MG/4 ML SDV ONE (11:43)
[2021-06-08] MEDS ORDERED: Lidocaine 1% with EPINEPHrine 1:100,000 50 ML MDV ONE (12:06)
[2021-06-08] MEDS ORDERED: Bupivacaine 0.5% 50 ML MDV ONE (12:06)
[2021-06-08] MEDS ORDERED: Naloxone 0.4 MG/ML SDV IVPUSH PRN (12:21)
[2021-06-08] MEDS: HYDROmorphone/Normal Saline 15 MG/30 ML PCA IV PRN (12:30)
[2021-06-08] MEDS ORDERED: Naloxone 0.4 MG/ML SDV IV PRN (13:00)
[2021-06-08] MEDS: Clindamycin Phosphate 900 MG in Sodium Chloride 0.9% 100 ML IV SCH ×2 (13:00→20:58)
[2021-06-08] MEDS ORDERED: hydrOXYzine HCL 100 MG/2 ML SDV IM ONE (13:12)
[2021-06-08] MEDS ORDERED: Dextrose 5%-Lactated Ringers 1,000 ML IV SCH (13:15)
[2021-06-08] MEDS ORDERED: Acetaminophen 500 MG Tab PO PRN (14:00)
[2021-06-08] MEDS ORDERED: Metoclopramide 10 MG/2 ML SDV IVPUSH PRN (14:00)
[2021-06-08] MEDS ORDERED: Labetalol 20 MG/4 ML Syringe IVPUSH PRN (14:00)
[2021-06-08] MEDS ORDERED: Pantoprazole 40 MG Vial IVPUSH SCH (14:00)
[2021-06-08] MEDS ORDERED: Albuterol/Ipratropium 3.0-0.5 MG/3 ML Neb Soln INH PRN (14:00)
[2021-06-08] MEDS ORDERED: diphenhydrAMINE 50 MG/ML SDV IVPUSH PRN (14:00)
[2021-06-08] MEDS ORDERED: Scopolamine 1.5 MG Transdermal Patch TOP SCH (15:00)
[2021-06-08] MEDS: Acetaminophen 500 MG Tab PO SCH (15:45)
[2021-06-08] MEDS ORDERED: MVI, Adult with Vitamin K 10 ML, Thiamine 200 MG, Zinc/Copper/Manganese/Selenium 1 ML i... IV SCH ×4 (16:00)
[2021-06-08] MEDS: Heparin Sodium 5,000 Units/ML Vial SUBCUT SCH (19:59)
[2021-06-09] MEDS: Meropenem 500 MG in Sodium Chloride 0.9% 50 ML IV SCH ×4 (00:19→20:06)
[2021-06-09] MEDS: Acetaminophen 500 MG Tab PO SCH ×4 (00:19→23:56)
[2021-06-09] MEDS ORDERED: Iopamidol 612 MG/ML 50 ML SDV PO ONE (03:39)
[2021-06-09] MEDS: Clindamycin Phosphate 900 MG in Sodium Chloride 0.9% 100 ML IV SCH ×3 (04:15→21:14)
--- NOTE | 2021-06-09 05:20 | CRLCR ---
For Patients: As a result of the Century Cures Act, medical imaging exams and procedure reports are released immediately into your electronic medical record. You may view this report before your referring provider. If you have questions, please contact your health care provider. INDICATION: Status post bariatric surgery. COMPARISON : 05/26/2021 TECHNIQUE: Theatrical Agent image demonstrates a nonobstructive bowel gas pattern. 50 milliliters of Isovue-300 was administered. Additional images acquired immediately and at 15 minute delay. Three images total FINDINGS : On insurance account manager image, there is no abnormal density in the abdomen. After contrast administration, contrast fills gastric remain and multiple nondilated small bowel loops. On the delayed image, most of the contrast has passed into small bowel loops which are nondilated. There is no evidence of extravasation in the images provided. IMPRESSION : Status post gastric bypass with no evidence of obstruction or leak. Dictated by Contreras Martell MD @ 06/10/2021 11:35:[address] Contreras Martell @ Jun 10 2021 11:35PM
[2021-06-09] MEDS: Ondansetron 4 MG/2 ML SDV IVPUSH PRN (06:08)
[2021-06-09] MEDS: Heparin Sodium 5,000 Units/ML Vial SUBCUT SCH ×2 (07:19→20:08)
[2021-06-09] MEDS: Pantoprazole 40 MG Vial IV SCH (08:23)
[2021-06-09] MEDS: buPROPion 150 MG Tab.ER PO SCH (08:24)
[2021-06-09] MEDS: Celecoxib 200 MG Cap PO SCH ×2 (08:25→20:08)
[2021-06-09] MEDS: SCOPOLAMINE PATCH CHECK TOP SCH (08:25)
[2021-06-09] MEDS: Sertraline 50 MG Tab PO SCH (08:25)
--- NOTE | 2021-06-09 09:22 | PN ---
DATE OF SERVICE: 06/09/2021 SUBJECTIVE: Vahe is postop day #1. His pain has been controlled. Vital signs stable. Oral intake 90 mL. Urine output 1620 via Devi catheter. ZABRINA drains put out 12 and 28 respectively. REVIEW OF SYSTEMS: Remainder of review of systems negative for any pertinent positives and negatives. OBJECTIVE: GENERAL: Vahe is a pleasant 50-year-old male. He is alert and orientated. VITAL SIGNS: TPR is 96.3, 63, 15, blood pressure is 102/57. HEENT: Negative. NECK: Supple. HEART: Regular rate and rhythm. LUNGS: Clear. ABDOMEN: Dressings dry and intact. ZABRINA drain put out 12 and 2 respectively. EXTREMITIES: Without peripheral edema. ASSESSMENT: 1. Exploratory laparotomy with: a. Drainage of intraabdominal abscess. b. Removal of intraabdominal peritoneal mesh. POSTOPERATIVE DIAGNOSES: 1. Intraabdominal abscess associated with contaminated adjacent intraperitoneal mesh. 2. Date of procedure: 06/08/2021. Surgeon: Mannie Pennington MD. PLAN: 1. Schedule and have consent signed for delayed primary closure on 06/10/2021 with IV local and TAP block. Surgeon: Mannie Pennington MD. Date of procedure: 06/10/2021 at 07:15. N.p.o. after midnight. 2. Remove Devi catheter. 3. Step 2 gastric bypass diet without cereal. 4. Decrease IV to 100 mL per hour. 5. Continue CHAINSAW MECH[employer]IC for pain management. The patient will be n.p.o. after midnight. 6. We will evaluate p.r.n. or in a.m. Dilcia Moreno PA-C /[id number]
[2021-06-09] MEDS: Dextrose 5%-Lactated Ringers 1,000 ML IV SCH (10:19)
[2021-06-09] MEDS: HYDROmorphone/Normal Saline 15 MG/30 ML PCA IV PRN (12:20)
[2021-06-09] MEDS ORDERED: MVI, Adult with Vitamin K 10 ML, Thiamine 200 MG, Zinc/Copper/Manganese/Selenium 1 ML i... IV SCH ×4 (16:00)
[2021-06-09] MEDS: Cyclobenzaprine 10 MG Tab PO PRN (21:12)
[2021-06-10] MEDS: Meropenem 500 MG in Sodium Chloride 0.9% 50 ML IV SCH ×4 (00:03→22:20)
[2021-06-10] MEDS: Clindamycin Phosphate 900 MG in Sodium Chloride 0.9% 100 ML IV SCH ×3 (04:33→21:21)
[2021-06-10] MEDS ORDERED: Lidocaine 1% with EPINEPHrine 1:100,000 50 ML MDV ONE (06:23)
[2021-06-10] MEDS ORDERED: Meropenem 500 MG SDV ONE (06:23)
[2021-06-10] MEDS ORDERED: Bupivacaine 0.5% 50 ML MDV ONE (06:23)
[2021-06-10] MEDS ORDERED: fentaNYL 100 MCG/2 ML SDV ONE (06:58)
[2021-06-10] MEDS ORDERED: Midazolam 1 MG/ML 2 ML SDV ONE (06:58)
[2021-06-10] MEDS ORDERED: Propofol 200 MG/20 ML SDV ONE ×2 (06:58→07:38)
[2021-06-10] MEDS ORDERED: Cyanocobalamin (Vitamin B12) 1,000 MCG/ML SDV IM ONE (09:00)
[2021-06-10] MEDS: Heparin Sodium 5,000 Units/ML Vial SUBCUT SCH ×2 (09:02→21:21)
[2021-06-10] MEDS: Acetaminophen 500 MG Tab PO SCH ×2 (09:02→16:33)
[2021-06-10] MEDS: buPROPion 150 MG Tab.ER PO SCH (09:03)
[2021-06-10] MEDS: Sertraline 50 MG Tab PO SCH (09:03)
[2021-06-10] MEDS: Celecoxib 200 MG Cap PO SCH ×2 (09:03→21:22)
[2021-06-10] MEDS: Pantoprazole 40 MG Vial IV SCH (09:04)
[2021-06-10] MEDS: SCOPOLAMINE PATCH CHECK TOP SCH (09:04)
[2021-06-10] MEDS: HYDROmorphone 2 MG Tab PO PRN ×3 (09:19→18:23)
[2021-06-10] MEDS: Cyclobenzaprine 10 MG Tab PO PRN (12:29)
--- NOTE | 2021-06-10 12:40 | PN ---
DATE OF SERVICE: 06/10/2021 SUBJECTIVE: Vahe is n.p.o. He will be going down for delayed primary closure. Vital signs have been stable. Oral intake prior to being n.p.o. at midnight was 1820. Urine output 650. ZABRINA drains put out a light pink serosanguineous drainage of 10 and 5 respectively. REVIEW OF SYSTEMS: Remainder of review of systems negative for any pertinent positives and negatives. OBJECTIVE: GENERAL: Vahe is a pleasant 50-year-old male. He is quite sleepy this morning. VITAL SIGNS: TPR is 96.2, 67, 18, blood pressure 125/67. HEENT: Negative. NECK: Supple. HEART: Regular rate and rhythm. LUNGS: Clear. ABDOMEN: Dressing dry and intact. ZABRINA drains as above. Abdominal binder . EXTREMITIES: Without peripheral edema. ASSESSMENT: Exploratory laparotomy with: 1. Drainage of intraabdominal abscess. 2. Removal of intraabdominal peritoneal mesh. POSTOPERATIVE DIAGNOSIS: Intraabdominal abscess associated with contamination adjacent to peritoneal mesh. Date of procedure: 06/08/2021. Surgeon: Mannie Pennington MD. PLAN: 1. Orders to be written after delayed primary closure. 2. We will evaluate p.r.n. or in a.m. Dilcia Moreno PA-C /[id number]
[2021-06-10] MEDS: hydrOXYzine HCL 100 MG/2 ML SDV IM PRN (13:39)
[2021-06-10] MEDS: Dextrose 5%-Lactated Ringers 1,000 ML IV SCH (15:27)
[2021-06-11] MEDS: Acetaminophen 500 MG Tab PO SCH ×3 (00:32→16:40)
[2021-06-11] MEDS: Meropenem 500 MG in Sodium Chloride 0.9% 50 ML IV SCH ×4 (03:51→20:20)
[2021-06-11] MEDS: Clindamycin Phosphate 900 MG in Sodium Chloride 0.9% 100 ML IV SCH ×3 (05:07→21:30)
[2021-06-11] MEDS: Cyclobenzaprine 10 MG Tab PO PRN ×2 (08:59→16:39)
[2021-06-11] MEDS: Heparin Sodium 5,000 Units/ML Vial SUBCUT SCH ×2 (08:59→20:20)
[2021-06-11] MEDS: Celecoxib 200 MG Cap PO SCH ×2 (09:00→20:20)
[2021-06-11] MEDS: Pantoprazole 40 MG Vial IV SCH (09:01)
[2021-06-11] MEDS: Sertraline 50 MG Tab PO SCH (09:01)
[2021-06-11] MEDS: buPROPion 150 MG Tab.ER PO SCH (09:01)
--- NOTE | 2021-06-11 09:10 | PN ---
DATE OF SERVICE: 06/11/2021 SUBJECTIVE: Vahe is a pleasant 50-year-old male. He was very sleepy this morning. He states his pain is controlled. He has been up ambulating. Vital signs stable. Oral intake 1360. Urine output 1350. He did have +2 voids and he had one bowel movement. Remainder of review of systems negative for any pertinent positives and negatives. OBJECTIVE: GENERAL: Vahe is a pleasant 50-year-old male. He is alert and orientated. VITAL SIGNS: Height 6 feet 1 inch, weight is 381 pounds. TPR is 96, 68, 18, blood pressure 110/82. HEENT: Negative. NECK: Supple. HEART: Regular rate and rhythm. LUNGS: Clear. ABDOMEN: Dressing dry and intact. Abdominal binder is on. EXTREMITIES: Without peripheral edema. ASSESSMENT: 1. Exploratory laparotomy with: a. Drainage of intraabdominal abscess. b. Removal of intraabdominal peritoneal mass. c. Postoperative diagnosis: Intraabdominal abscess associated with contaminated adjacent to peritoneal mesh. d. Date of procedure: 06/08/2021. e. Surgeon: Mannie Pennington M.D. 2. Delayed primary closure for open abdominal incision: a. Date of procedure: 06/10/2021. b. Surgeon: Mannie Pennington M.D. PLAN: 1. Check CBC, CMP, mag, phos in a.m. 2. We will evaluate p.r.n. or in a.m. 3. Plan, discharge in a.m. Dilcia Moreno PA-C /[id number]
[2021-06-11] MEDS: hydrOXYzine HCL 100 MG/2 ML SDV IM PRN (11:36)
[2021-06-11] MEDS: HYDROmorphone 2 MG Tab PO PRN (11:36)
[2021-06-11] MEDS: Ondansetron 4 MG/2 ML SDV IVPUSH PRN (12:09)
[2021-06-11] MEDS: Ondansetron 4 MG Tab.DIS PO PRN ×2 (16:39→20:29)
[2021-06-11] MEDS: Dextrose 5%-Lactated Ringers 1,000 ML IV SCH ×2 (20:22→23:32)
[2021-06-12] MEDS: Acetaminophen 500 MG Tab PO SCH ×2 (00:21→08:52)
[2021-06-12] MEDS: Meropenem 500 MG in Sodium Chloride 0.9% 50 ML IV SCH (02:43)
[2021-06-12] MEDS: Clindamycin Phosphate 900 MG in Sodium Chloride 0.9% 100 ML IV SCH (04:51)
[2021-06-12] MEDS ORDERED: Pantoprazole 40 MG Delayed-Release Granules 1 Packet PO SCH (07:30)
[2021-06-12] MEDS: Heparin Sodium 5,000 Units/ML Vial SUBCUT SCH (08:49)
[2021-06-12] MEDS: Celecoxib 200 MG Cap PO SCH (08:53)
[2021-06-12] MEDS: Sertraline 50 MG Tab PO SCH (08:54)
[2021-06-12] MEDS: buPROPion 150 MG Tab.ER PO SCH (08:54)
[2021-06-12] MEDS ORDERED: Magnesium Hydroxide 400 MG/5 ML Susp 30 ML Cup PO ONE (09:00)
[2021-06-12] MEDS ORDERED: Amoxicillin/Clavulanate K 875-125 MG Tab PO ONE (09:00)
--- NOTE | 2021-06-19 04:38 | DISCH ---
FINAL DIAGNOSES: 1. Intraabdominal abscess posterior to umbilical hernia mesh repair. 2. Status post recent duodenal switch. 3. History of anxiety. 4. History of hyperlipidemia. OPERATIVE PROCEDURES: 1. Attempted percutaneous drainage of intraabdominal abscess per Interventional Radiology on 06/07. 2. On 06/08, exploratory laparotomy with: a. Drainage of intraabdominal abscess. b. Removal of intraperitoneal mesh. 3. On 06/10, delayed primary closure of open abdominal incision. SUMMARY: This is a 50-year-old who is status post a laparoscopic duodenal switch on 05/24/2021. The patient did have some postoperative bleeding. Initially, went home and was doing reasonably well and began developing more pain in the right mid abdomen and fever and chills. He was seen initially in [place] and admitted to [facility] and was subsequently discharged home on IV antibiotics, but he presented to [facility] then on 06/07 and looked febrile and overall had a picture of smoldering infection. CT scan was obtained, which showed an abscess behind the periumbilical mesh that had been placed some years ago. Interventional Radiology per Dr. Hayward attempted to drain this. He could get a needle through the mesh and drained some of the purulence, but the catheter would not pass through the mesh. Therefore, on the next day, the patient underwent exploratory laparotomy, removal of the mesh, and drainage of the intraabdominal abscess. Cultures grew out anaerobe and Strep viridans. Clinically, the patient is doing well at this point. He has been afebrile with stable vital signs, eating well, and will be discharged home on Augmentin 875 mg p.o. b.i.d. for 7 additional days. In addition to his usual medications, he will have prescription for Celebrex 200 mg b.i.d., Zofran 4 mg ODT q.4 hours p.r.n. nausea, as well as Augmentin 875 mg p.o. b.i.d. x7 days. He will be following up with Dilcia Moreno PA-C at [facility] on 06/21/2021, and instructed to stay on the step-2 diet until a month from his original duodenal switch surgery, i.e., until 06/24/2021. /[id number]
--- NOTE | 2021-06-20 12:47 | OR ---
DATE OF PROCEDURE: 06/08/2021 SURGEON: Mannie Pennington MD PREOPERATIVE DIAGNOSIS: Intraabdominal abscess associated with contamination of adjacent intraperitoneal mesh. POSTOPERATIVE DIAGNOSIS: Intraabdominal abscess associated with contamination of adjacent intraperitoneal mesh. OPERATIVE PROCEDURE: Exploratory laparotomy with: 1. Drainage of intraabdominal abscess (29658). 2. Removal of intraperitoneal mesh (62134). ANESTHESIA: General. GAS PIT WORKER: Dilcia Moreno PA-C. INDICATIONS FOR PROCEDURE: A 50-year-old status post a laparoscopic duodenal switch presenting with a picture of an abscess located below some periumbilical intraperitoneal mesh. Attempt was made yesterday at percutaneous drainage of this. The needle was able to be passed into the abscess with purulent return being obtained, but because of the mesh, a drainage catheter could not be placed per the Radiology Department. Given this, the plan was to proceed with a laparotomy with drainage of the abscess, removal of at this point by definition contaminated intraperitoneal mesh. Potential risks of the procedure including bleeding, infection, injury to underlying viscera, problems involved with fistula formation as well as possible recurrent infection over time were reviewed, and the patient wishes to proceed. DETAILS OF PROCEDURE: The patient was taken to the operating room and placed in a supine position. After general endotracheal anesthesia was induced, a Devi catheter was inserted and the abdomen prepped and draped. A midline incision from roughly a handsbreadth above the umbilicus and slightly below it was then made and carried down through the full- thickness abdominal wall. Upon entering the peritoneal cavity, the initial mesh was encountered. The mesh was initially incised and underlying this then a herrmann purulent material was evacuated. Cultures were obtained x2 and Gram Stain showed gram-positive cocci. The mesh was then further divided and the remainder of the abscess then evacuated. There did not appear to be any bowel involvement, although there was a loop of small bowel at the superior aspect of the abscess cavity which was otherwise uncomplicated in appearance. At this point, the mesh was then excised from the abdominal wall using a combination of blunt and electrocautery dissection and the mesh then delivered from the field. The area was irrigated with a meropenem and Zyvox-containing saline solution until all areas were clear. The area of visible small bowel was felt to be at some risk for development of a fistula. Given this, this was initially covered with fibrin sealant and then a tongue of omentum placed over the bowel and fixed there with a single 3-0 Vicryl stitch lateral to the edge of the bowel. Two Leonard-Ramirez drains were then placed through stab wounds in the left mid abdomen and positioned into the area of the abscess cavity and the fascia was then closed with #2 Vicryl stitch. Bilateral transversus abdominis plane blocks were then placed using ultrasound guidance and the wounds were then packed open at the skin and subcutaneous tissue level with iodoform gauze and the patient taken to the recovery room in satisfactory condition. There were no evident complications. Physician virtual assistant, Dilcia Moreno, played an essential role in assisting in this case, helping to position the patient, retracting structures as needed as well as suturing and cutting sutures when indicated. Her presence improved patient safety and decreased the operative time. Mannie Pennington MD /[id number]
--- NOTE | 2021-06-20 13:04 | OR ---
DATE OF PROCEDURE: 06/10/2021 SURGEON: Mannie Pennington MD PREOPERATIVE DIAGNOSIS: Open abdominal incision. POSTOPERATIVE DIAGNOSIS: Open abdominal incision. PROCEDURE PERFORMED: Delayed primary closure of open abdominal incision. ANESTHESIA: Local plus IV sedation. INDICATION FOR PROCEDURE: The patient is 48 hours status post drainage of an intraabdominal abscess. Skin and subcutaneous tissue were felt to be high risk for wound infection if these were closed primarily, and therefore, the wound was packed open for a planned delayed primary closure at this time. Potential risks of the procedure including bleeding and infection were reviewed with the patient, and he wishes to proceed. DETAILS OF PROCEDURE: The patient was taken to the operating room and placed in a supine position. IV sedation was administered after which the abdominal wall packing was removed. The wound was inspected and found to be clean, and the area was prepped and draped. Bilateral transversus abdominis plane blocks were then placed using ultrasound guidance. The wound was irrigated with meropenem and Zyvox-containing saline solution and the incision then closed with layers of 3-0 and 4-0 Vicryl stitch deep and luis felipe for the skin. A dressing was applied. There were no evident complications. Mannie Pennington MD /[id number]
== END 2021-06-12 10:45 | disposition home or self-care (01) | DRG 353 ==
LOC: JP.2SS 11:51
PROVIDERS: ADMIT Surgery; ATTEND Surgery
PROC: 0W9G0ZZ Drainage of Peritoneal Cavity, Open Approach (ICD-10-PCS; principal; 2021-06-07)
PROC: 0WPG0JZ Removal of Synthetic Substitute from Peritoneal Cavity, Open Approach (ICD-10-PCS; 2021-06-07)
PROC: 0WQF0ZZ Repair Abdominal Wall, Open Approach (ICD-10-PCS; 2021-06-10)
DX: K95.81 Infection due to other bariatric procedure (principal); K65.1 Peritoneal abscess; Z68.43 Body mass index [BMI] 50.0-59.9, adult; T85.79XA Infection and inflammatory reaction due to other internal prosthetic devices, implants and grafts, initial encounter; F41.9 Anxiety disorder, unspecified; F32.9 Major depressive disorder, single episode, unspecified; Z20.822 Contact with and (suspected) exposure to COVID-19; E78.00 Pure hypercholesterolemia, unspecified; I10 Essential (primary) hypertension; E86.0 Dehydration; D50.9 Iron deficiency anemia, unspecified; E66.9 Obesity, unspecified; Z87.891 Personal history of nicotine dependence; Z98.84 Bariatric surgery status; Z79.899 Other long term (current) drug therapy
CPT/HCPCS: 0241U; 36415; 49405; 49405-26; 74177; 74177-26; 74240; 77012; 77012-26; 80053; 82728; 83735; 83880; 84100; 85025; 85027; 87040; 87070; 87075; 87077; 87205; 88305; 94762; A9270-GY; C1729; C1769; C9113; J0171; J0330; J1100; J1170; J1644; J2185; J2250; J2405; J2704; J2710; J2765; J2795; J3010; J3410; J3411; J3420; J3480; J3490; J7120; J7121; Q9967

== ENCOUNTER 2021-06-15 11:30 | Inpatient (IN) | payer MEDICAID ==
[2021-06-15] MEDS ORDERED: HYDROmorphone 0.5 MG/0.5 ML Syringe IVPUSH PRN (11:42)
[2021-06-15] MEDS ORDERED: Dextrose 5%-Lactated Ringers 1,000 ML IV SCH (12:00)
[2021-06-15] MEDS ORDERED: Meropenem 1 GM in Sodium Chloride 0.9% 100 ML IV ONE (12:15)
[2021-06-15 12:22] LABS: CORONAVIRUS COVID-19 NAA NEGATIVE (NEGATIVE)
[2021-06-15] MEDS ORDERED: Bupivacaine 0.5% 50 ML MDV ONE (12:38)
[2021-06-15] MEDS ORDERED: Lidocaine 1% with EPINEPHrine 1:100,000 50 ML MDV ONE (12:38)
--- NOTE | 2021-06-15 12:40 | PCM.HP.2 ---
H&P History of Present Illness - General Date of Service: 06/15/21 Source of Information: Patient, Significant Other History Limitations: Reports: Other (feels weak and dizzy. ) - History of Present Illness Initial Comments - Free Text/Narative: Had been feeling good since getting discharged from the hospital on 06/12/2021. Monday and Monday he states that he started having a low grade fever between 100 - 100.3. Monday afternoon when his got home from work he told her his incision was draining a carmona purulent drainage and soaking through his dressings. Has not been abls to eat or drink because of nausea and extreme dizziness. He also reports that his right leg feels numb and is tingling and it won't wake up feels like it is slTaking Augmentin 875 mg twice a day and has diarrhea from this antibiotic. - Related Data Allergies/Adverse Reactions: Allergies Allergy/AdvReac Type Severity Reaction Status Date / Time No Known Allergies Allergy Verified 06/15/21 12:29 Home Medications: Home Meds Sertraline [Zoloft] 100 mg PO DAILY 05/18/21 [History] atorvaSTATin [Lipitor] 40 mg PO BEDTIME 05/18/21 [History] buPROPion HCL [Bupropion Xl] 150 mg PO DAILY 05/18/21 [History] Acetaminophen [Tylenol Extra Strength] 500 mg PO Q6H PRN #1 bottle 05/28/21 [Rx] HYDROmorphone [Dilaudid] 2 mg PO Q4H PRN #12 tablet 05/28/21 [Rx] Ondansetron [Zofran ODT] 4 mg PO Q4H PRN #30 tab.dis 05/28/21 [Rx] Past Medical History - Past Health History Medical/Surgical History: Denies Medical/Surgical History Cardiovascular History: Reports: High Cholesterol, Hypertension Gastrointestinal History: Reports: Other (See Below) Other Gastrointestinal History: gastric ulcers Psychiatric History: Reports: Anxiety, Depression Endocrine/Metabolic History: Reports: Obesity/BMI 30+ - Infectious Disease History Infectious Disease History: Reports: Chicken Pox - Past Surgical History GI Surgical History: Reports: Hernia, Abdominal Social & Family History - Family History Family Medical History: No Pertinent Family History Cardiac: Reports: Heart Failure - Caffeine Use Caffeine Use: Reports: None H&P Review of Systems - Review of Systems: Review Of Systems: See Below General: Reports: Fever, Weakness, Fatigue, Decreased Appetite HEENT: Reports: No Symptoms Pulmonary: Reports: Shortness of Breath Cardiovascular: Reports: No Symptoms Gastrointestinal: Reports: Abdominal Pain (6/10 on a pain scale of 1 - 10. ), Diarrhea (up to 6 stools a day ) Genitourinary: Reports: No Symptoms, Other (incision is stapled but there is a lot of carmona purulent drainage coming from the mid incision area. ) Musculoskeletal: Reports: Leg Pain (right leg numbness and tingling - feels like his leg is sleeping ) Skin: Reports: Pallor Psychiatric: Reports: No Symptoms Neurological: Reports: No Symptoms Hematologic/Lymphatic: Reports: No Symptoms Immunologic: Reports: No Symptoms Exam - Exam Exam: See Below - Exam Quality Assessment: DVT Prophylaxis General: Alert, Oriented, Moderate Distress HEENT: PERRLA, Conjunctiva Clear Neck: Supple, Trachea Midline Lungs: Clear to Auscultation, Normal Respiratory Effort Cardiovascular: Regular Rate, Regular Rhythm GI/Abdominal Exam: Other (tenderness in the mid abdomen. Charito are intact and there is a lot of carmona purulent drainage coming from mid incision. ) (Male) Exam: Deferred Rectal (Males) Exam: Deferred Back Exam: Normal Inspection, Full Range of Motion Extremities: Normal Inspection, Normal Range of Motion Skin: Cool, Moist (Pale) Neurological: Cranial Nerves Intact Neuro Extensive - Mental Status: Alert, Oriented x3 Neuro Extensive - Motor, Sensory, Reflexes: CN II-XII Intact Psychiatric: Labile Mood - Patient Data Lab Results Last 24 hrs: Laboratory Results - last 24 hr 06/15/21 06/15/21 06/15/21 Range/Units 11:39 11:54 11:54 WBC 10.2 (4.5-11.0) K/uL RBC 4.40 (4.30-5.90) M/uL Hgb 11.7 L D (12.0-15.0) g/dL Hct 37.4 L (40.0-54.0) % MCV 85 (80-98) fL MCH 27 (27-31) pg MCHC 31 L (32-36) % Plt Count 481 H (150-400) K/uL Neut % (Auto) 63.8 (36-66) % Lymph % (Auto) 21.4 L (24-44) % Custer % (Auto) 9.5 H (2-6) % Eos % (Auto) 4.5 H (2-4) % Baso % (Auto) 0.8 (0-1) % Sodium 140 (140-148) mmol/L Potassium 4.2 (3.6-5.2) mmol/L Chloride 103 (100-108) mmol/L Carbon Dioxide 26 (21-32) mmol/L Anion Gap 11.3 (5.0-14.0) mmol/L BUN 11 (7-18) mg/dL Creatinine 0.9 (0.8-1.3) mg/dL Est Cr Clr Drug Dosing TNP Estimated GFR (MDRD) > 60 (>60) Glucose 81 (74-106) mg/dL Calcium 8.9 (8.5-10.1) mg/dL Phosphorus 2.5 (2.5-4.9) mg/dL Magnesium 2.0 (1.8-2.4) mg/dL Total Bilirubin 0.6 (0.2-1.0) mg/dL AST 27 (15-37) U/L ALT 39 D (12-78) U/L Alkaline Phosphatase 83 (46-116) U/L Total Protein 7.2 (6.4-8.2) g/dL Albumin 2.6 L (3.4-5.0) g/dL Globulin 4.6 H (2.3-3.5) g/dL Albumin/Globulin Ratio 0.6 L (1.2-2.2) Influenza Type A RNA Negative (NEGATIVE) RSV RNA (INAAT) Negative (NEGATIVE) Influenza Type B RNA Negative (NEGATIVE) SARS-CoV-2 RNA (ERNESTINE) Negative (NEGATIVE) Result Diagrams: 06/15/21 11:54 06/15/21 11:54 Moisés Results Last 24 hrs: Microbiology 06/15/21 11:46 Gram Stain - Final Abdomen - Incision - Problem List (1) Abdominal abscess SNOMED Code(s): 06703214 ICD Code: [id number] - Status: Acute Current Visit: No Problem List Initiated/Reviewed/Updated: Yes Orders Last 24hrs: Active Orders 24 hr Category Date Time Status NPO Now [Nothing per Oral Now Diet] [DIET] Diet 06/15/21 Lunch Active CULTURE WOUND + SMEAR [RM] Stat Lab 06/15/21 11:46 Results Aztreonam [Azactam] 1 gm Med 06/15/21 12:15 Active Sodium Chloride 0.9% [Normal Saline] 50 ml IV ONETIME Dextrose 5%-Lactated Ringers 1,000 ml Med 06/15/21 12:00 Active IV ASDIRECTED HYDROmorphone [Dilaudid] Med 06/15/21 11:42 Active 0.5 mg IVPUSH Q2H PRN Meropenem [Merrem] 1 gm Med 06/15/21 12:15 Active Sodium Chloride 0.9% [Normal Saline] 100 ml IV ONETIME Medication Orders Hydromorphone HCl (Hydromorphone 0.5 Mg/0.5 Ml Syringe) 0.5 mg IVPUSH Q2H PRN PRN Reason: Pain Dextrose/Lactated Ringer's (Dextrose 5%-Lactated Ringers) 1,000 mls @ 150 mls/hr IV ASDIRECTED FANI Last Admin: 06/15/21 12:15 Dose: 150 mls/hr Documented by: LIT Meropenem 1 gm/ Sodium (Chloride) 100 mls @ 200 mls/hr IV ONETIME ONE Stop: 06/15/21 12:44 Last Admin: 06/15/21 12:13 Dose: 200 mls/hr Documented by: LIT Aztreonam 1 gm/ Sodium (Chloride) 50 mls @ 100 mls/hr IV ONETIME ONE Stop: 06/15/21 12:44 Last Admin: 06/15/21 12:09 Dose: 100 mls/hr Documented by: CHICHI Assessment/Plan Comment:: Abdominal Abscess Plan: Scheduled: Open Abdominal Incision and drain Abscess IV/Local Sedation Case to Follow NPO After preoperative evaluation and discussion of possible risk and complications patient wishes to proceed with surgical procedure. See copy of other orders Patient expected to be hospitalized 3 nights and 4 days. Prognosis good. Dilcia Reyes 06/15/2021
[2021-06-15] MEDS ORDERED: Meropenem 500 MG SDV ONE (13:00)
[2021-06-15] MEDS ORDERED: Propofol 200 MG/20 ML SDV ONE ×2 (13:24→13:31)
[2021-06-15] MEDS ORDERED: Midazolam 1 MG/ML 2 ML SDV ONE (13:25)
[2021-06-15] MEDS ORDERED: fentaNYL 100 MCG/2 ML SDV ONE (13:25)
[2021-06-15] MEDS ORDERED: Naloxone 0.4 MG/ML SDV IVPUSH PRN (14:10)
[2021-06-15] MEDS: Linezolid 600 MG in Premix Bag 1 BAG IV SCH (14:50)
[2021-06-15] MEDS: HYDROmorphone/Normal Saline 15 MG/30 ML PCA IV PRN (14:56)
[2021-06-15] MEDS: Pantoprazole 40 MG Vial IV SCH (17:15)
[2021-06-15] MEDS: Acetaminophen 500 MG Tab PO SCH ×2 (17:15→21:40)
[2021-06-15] MEDS: Lactated Ringers 1,000 ML IV SCH (17:23)
[2021-06-15] MEDS: Meropenem 500 MG in Sodium Chloride 0.9% 50 ML IV SCH (17:31)
[2021-06-15] MEDS: Celecoxib 200 MG Cap PO SCH (20:18)
[2021-06-15] MEDS: atorvaSTATin 20 MG Tab PO SCH (20:18)
[2021-06-16] MEDS: Meropenem 500 MG in Sodium Chloride 0.9% 50 ML IV SCH ×4 (00:40→17:29)
[2021-06-16] MEDS: Lactated Ringers 1,000 ML IV SCH ×2 (00:40→19:51)
[2021-06-16] MEDS: Linezolid 600 MG in Premix Bag 1 BAG IV SCH ×2 (02:50→13:49)
[2021-06-16] MEDS: Acetaminophen 500 MG Tab PO SCH ×4 (04:15→21:46)
[2021-06-16] MEDS ORDERED: Potassium Phos in 0.9 % NaCl 15 MMOL in Premix Bag 1 BAG IV ONE ×2 (09:00)
[2021-06-16] MEDS: Lactobacillus Rhamnosus GG (Probiotic) Cap PO SCH ×2 (09:26→21:46)
[2021-06-16] MEDS: Sertraline 50 MG Tab PO SCH (09:26)
[2021-06-16] MEDS: Celecoxib 200 MG Cap PO SCH ×2 (09:27→21:45)
[2021-06-16] MEDS: buPROPion 150 MG Tab.ER PO SCH (09:27)
[2021-06-16] MEDS: Ondansetron 4 MG/2 ML SDV IVPUSH PRN ×2 (10:08→21:44)
--- NOTE | 2021-06-16 10:14 | US ---
VL Duplex Lwr Ext Veins Ltd Rt INDICATION: numbness/tingling of entire right leg FINDINGS: Ultrasound examination of the lower extremity using Doppler and compressive technique demonstrates that the common femoral, femoral, and popliteal veins are patent, and negative for thrombus. The calf veins were segmentally visualized and are negative where seen. IMPRESSION: Negative for deep venous thrombosis.
--- NOTE | 2021-06-16 10:23 | PN ---
DATE OF SERVICE: 06/16/2021 SUBJECTIVE: Vahe is postop day #1. He has been up ambulating. His open incision was examined by Mannie Pennington MD. Packing was removed and then repacked. He has been afebrile. Vital signs stable. Oral intake 490 and urine output has been independent. Gram stain of abdominal incision showed many white cells, rare gram-positive cocci. Main concern today is about his right flank, when he is up ambulating it is numb, tingly, and feels like it is asleep from the hip down. It is worse with ambulating he states. SCDs, feels better when he has them on. Remainder of review of systems negative for any pertinent positives and negatives. OBJECTIVE: GENERAL: Vahe is a pleasant 50-year-old male. He is alert and orientated. VITAL SIGNS: TPR; 97.9, 67, 16. Blood pressure 146/73. HEENT: Negative. NECK: Supple. HEART: Regular rate and rhythm. LUNGS: Clear. ABDOMEN: Open incision, was changed by Mannie Pennington MD. Abdominal binder has been on. EXTREMITIES: There is trace peripheral edema. ASSESSMENT: 1. Exploratory laparotomy of abdominal wound with drainage of subcutaneous intraabdominal abscess. 2. Closure focal fascial dehiscence. POSTOPERATIVE DIAGNOSIS: Wound infection with superficial intraabdominal abscess extending through small fascial . Date of procedure 06/15/2021. Surgeon: Mannie Pennington MD. PLAN: 1. Discontinue Azactam. 2. K-Phos 60 millimoles IV 1 time. 3. Probiotic, Culturelle 2 b.i.d. 4. Leave IV at current rate. 5. Check duplex study of right leg. 6. We will evaluate p.r.n. or in a.m. Dilcia Moreno PA-C /[id number]
[2021-06-16] MEDS ORDERED: MVI, Adult with Vitamin K 10 ML, Thiamine 200 MG, Zinc/Copper/Manganese/Selenium 1 ML i... IV ONE ×4 (10:30)
[2021-06-16] MEDS ORDERED: Metoclopramide 10 MG/2 ML SDV IVPUSH PRN (13:29)
[2021-06-16] MEDS: Potassium Phosphates 22.5 MMOLE in Sodium Chloride 0.9% 250 ML IV SCH ×2 (13:44→18:07)
[2021-06-16] MEDS: Pantoprazole 40 MG Vial IV SCH (15:19)
[2021-06-16] MEDS: atorvaSTATin 20 MG Tab PO SCH (21:46)
[2021-06-17] MEDS: Meropenem 500 MG in Sodium Chloride 0.9% 50 ML IV SCH ×4 (00:53→17:33)
[2021-06-17] MEDS: Lactated Ringers 1,000 ML IV SCH ×3 (02:42→23:52)
[2021-06-17] MEDS: Linezolid 600 MG in Premix Bag 1 BAG IV SCH ×2 (02:43→14:41)
[2021-06-17] MEDS: Acetaminophen 500 MG Tab PO SCH ×4 (04:17→21:30)
--- NOTE | 2021-06-17 08:33 | PN ---
DATE OF SERVICE: 06/17/2021 SUBJECTIVE: Vahe reports his pain is controlled. His C diff was negative. There is no change that needs to be done with the antibiotics. He has right leg numbness and tingling. The peripheral vascular ultrasound was negative. He thinks it is a little bit better. No fever. Oral intake 390. Urine output, independent voids, and he has had one bowel movement. REVIEW OF SYSTEMS: Remainder of review of systems negative for any pertinent positives and negatives. OBJECTIVE: GENERAL: Vahe Vázquez is a pleasant 50-year-old male. He is alert and orientated. VITAL SIGNS: T-P-R 97, 62, 16, blood pressure 129/72. HEENT: Negative. NECK: Supple. HEART: Regular rate and rhythm. LUNGS: Clear. ABDOMEN: Dressings dry and intact. Abdominal binder is on. EXTREMITIES: Without peripheral edema. ASSESSMENT: 1. Exploratory laparotomy of abdominal wound with drainage of subcutaneous intraabdominal abscess. 2. Closure of focal fascial dehiscence. 3. Postop diagnosis wound infection with superficial intraabdominal abscess extending through small fascial dehiscence. 4. Date of procedure, 06/15/2021. Surgeon, Mannie Pennington MD. PLAN: 1. Continue same antibiotics. 2. Communication order. Dr. Pennington will do dressing change tomorrow and patient to shower before that dressing change. 3. May shower once daily before the dressing packing and changing. 4. We will evaluate p.r.n. or in a.m. Dilcia Moreno PA-C /[id number]
[2021-06-17] MEDS: Lactobacillus Rhamnosus GG (Probiotic) Cap PO SCH ×2 (09:28→21:29)
[2021-06-17] MEDS: Celecoxib 200 MG Cap PO SCH ×2 (09:28→21:29)
[2021-06-17] MEDS: Sertraline 50 MG Tab PO SCH (09:29)
[2021-06-17] MEDS: buPROPion 150 MG Tab.ER PO SCH (09:29)
[2021-06-17] MEDS: Pantoprazole 40 MG Delayed-Release Granules 1 Packet PO SCH (17:25)
[2021-06-17] MEDS: atorvaSTATin 20 MG Tab PO SCH (21:30)
[2021-06-17] MEDS: HYDROmorphone/Normal Saline 15 MG/30 ML PCA IV PRN (22:49)
[2021-06-18] MEDS: Meropenem 500 MG in Sodium Chloride 0.9% 50 ML IV SCH ×4 (00:34→18:33)
[2021-06-18] MEDS: Linezolid 600 MG in Premix Bag 1 BAG IV SCH ×2 (01:54→15:24)
[2021-06-18] MEDS: Acetaminophen 500 MG Tab PO SCH ×4 (04:21→21:35)
[2021-06-18] MEDS: Lactated Ringers 1,000 ML IV SCH (08:19)
[2021-06-18] MEDS: buPROPion 150 MG Tab.ER PO SCH (08:20)
[2021-06-18] MEDS: Celecoxib 200 MG Cap PO SCH ×2 (08:20→20:57)
[2021-06-18] MEDS: Sertraline 50 MG Tab PO SCH (08:20)
--- NOTE | 2021-06-18 08:43 | PN ---
DATE OF SERVICE: 06/18/2021 The patient has been afebrile with stable vital signs. There is little bit of collection of fluid we will need to have that gently opened with a dressing change to prevent premature closure. Otherwise, C and S is pending. We will likely have him discharged to home tomorrow while doing dressing changes and continuing the course of some oral antibiotics. Mannie Pennington MD /[id number]
[2021-06-18] MEDS: Lactobacillus Rhamnosus GG (Probiotic) Cap PO SCH ×2 (10:48→20:57)
[2021-06-18] MEDS: Pantoprazole 40 MG Delayed-Release Granules 1 Packet PO SCH (15:45)
[2021-06-18] MEDS: atorvaSTATin 20 MG Tab PO SCH (20:57)
[2021-06-18] MEDS ORDERED: Cyclobenzaprine 10 MG Tab PO PRN (21:05)
[2021-06-19] MEDS: Lactated Ringers 1,000 ML IV SCH ×2 (00:05→16:27)
[2021-06-19] MEDS: Meropenem 500 MG in Sodium Chloride 0.9% 50 ML IV SCH ×5 (00:51→23:47)
[2021-06-19] MEDS: Linezolid 600 MG in Premix Bag 1 BAG IV SCH (03:31)
[2021-06-19] MEDS: Acetaminophen 500 MG Tab PO SCH ×5 (05:03→21:01)
[2021-06-19] MEDS ORDERED: Iopamidol 612 MG/ML 500 ML Multipack Bottle IV ONE (08:20)
[2021-06-19] MEDS ORDERED: Sodium Chloride 0.9% 10 ML Syringe FLUSH ONE (08:20)
--- NOTE | 2021-06-19 09:41 | CRLCT ---
For Patients: As a result of the Century Cures Act, medical imaging exams and procedure reports are released immediately into your electronic medical record. You may view this report before your referring provider. If you have questions, please contact your health care provider. INDICATION: Abdominal pain. COMPARISON: [address] TECHNIQUE: 150 mL Isovue-300 IV contrast. FINDINGS: Small focus of patchy and reticular airspace opacity at the inferior anterior lingula could be some atelectasis. It is new from before. Moderate low-attenuation of the liver parenchyma diffusely with more dense low-attenuation of the falciform ligament level. Gastric bypass changes. Cutaneous and subcutaneous dehiscence of surgical incision with intact abdominal wall in the supraumbilical mid abdomen. Decreased size of fluid collection at the preperitoneal margin of surgical wound with some high attenuation presumed embolization or surgical material at the peripheral margin of the fluid. Current fluid collection is almost too subtle to measure with estimated greatest axial diameter of 4 x 1.5 cm (image 100 series 2) and craniocaudal length of about 4 cm (image 81 series 4). Prior air has resolved. No peritoneal free air or free fluid. Large and small bowel show no dilatation or inflammation. No significant bone finding. Minor osteoarthritis of sacroiliac joints. IMPRESSION: Significant improvement in the preperitoneal abdominal wall abscess. Please note that all CT scans at this facility use dose modulation, iterative reconstruction, and/or weight-based dosing when appropriate to reduce radiation dose to as low as reasonably achievable. Dictated by Kyle Gar MD @ 06/19/2021 9:39:[address] Kyle Gar @ Jun 19 2021 9:39AM
[2021-06-19] MEDS: Celecoxib 200 MG Cap PO SCH ×2 (09:50→20:58)
[2021-06-19] MEDS: Lactobacillus Rhamnosus GG (Probiotic) Cap PO SCH ×2 (09:50→20:58)
[2021-06-19] MEDS: Sertraline 50 MG Tab PO SCH (11:03)
[2021-06-19] MEDS: buPROPion 150 MG Tab.ER PO SCH (11:03)
[2021-06-19] MEDS: Pantoprazole 40 MG Delayed-Release Granules 1 Packet PO SCH (16:18)
[2021-06-19] MEDS: atorvaSTATin 20 MG Tab PO SCH (20:58)
[2021-06-20] MEDS: Meropenem 500 MG in Sodium Chloride 0.9% 50 ML IV SCH (05:37)
[2021-06-20] MEDS: Acetaminophen 500 MG Tab PO SCH ×2 (05:37→06:01)
[2021-06-20] MEDS: Ondansetron 4 MG/2 ML SDV IVPUSH PRN (07:15)
[2021-06-20] MEDS: Lactobacillus Rhamnosus GG (Probiotic) Cap PO SCH (08:43)
[2021-06-20] MEDS: Celecoxib 200 MG Cap PO SCH (08:43)
[2021-06-20] MEDS: Sertraline 50 MG Tab PO SCH (08:43)
[2021-06-20] MEDS: buPROPion 150 MG Tab.ER PO SCH (08:43)
--- NOTE | 2021-06-20 13:21 | PN ---
DATE OF SERVICE: 06/19/2021 The patient has been afebrile with stable vital signs. He is complaining of some pain in the right abdomen and is somewhat tender over there. Hopefully, this is some muscle pulling. Does not really show any signs of sepsis per se, but we will obtain a CT scan of the abdomen and pelvis today with some IV and oral contrast to rule out there being a secondary abscess or problem in that area and recheck some labs tomorrow morning. If things do not look infected, will probably be ready for discharge home tomorrow; otherwise, continue the present antibiotics. The cultures are growing Strep viridans along with an anaerobe, which should be covered by the present set of antibiotics. Mannie Pennington MD /[id number]
--- NOTE | 2021-06-21 15:32 | DISCH ---
FINAL DIAGNOSES: 1. Subcutaneous wound infection with subfascial intraabdominal extension through small area of fascial dehiscence. 2. Recent drainage of intraabdominal abscess and removal of adjacent intraperitoneal mesh. 3. Recent laparoscopic duodenal switch. 4. History of anxiety and depression. SUMMARY: This 50-year-old male presenting with a purulent drainage from a recently closed midline abdominal incision. On the day of admission, the patient was taken to the operating room, and the area was opened up and explored. This was primarily subcutaneous area of purulence, but did have a small subfascial extension through a focal fascial dehiscence on the superior end of the incision. Cultures of this grew out Strep viridans and an anaerobe. At present, the patient has been afebrile with stable vital signs. Wound is quite clean. Fascia appeared to be remaining intact. Laboratories today show normal white count of 5.7. The patient will be discharged home today with b.i.d. dressing changes per the and he will be following up with Dr. Pennington at [facility] on 06/20/2021 at 10:30. Based on cultures, we will send him on Augmentin 875 mg p.o. b.i.d. x7 days, clindamycin 450 mg p.o. q.i.d. x7 days #28. These two antibiotics most likely both will cover the Strep viridans and the anaerobe. Additionally, received Flexeril 10 mg p.o. t.i.d. p.r.n. muscle spasm #30 refill x1 and Dilaudid 2 mg p.o. q.6 hours p.r.n. pain #12. Otherwise, he will be continued on his usual home medications. /[id number]
--- NOTE | 2021-06-21 16:29 | OR ---
DATE OF PROCEDURE: 06/15/2021 SURGEON: Mannie Pennington MD PREOPERATIVE DIAGNOSIS: Subcutaneous wound infection. POSTOPERATIVE DIAGNOSIS: Subcutaneous wound infection with superficial intraabdominal extension through small area of fascial dehiscence. OPERATIVE PROCEDURES: Examination of abdominal wall incision with: 1. Drainage of subcutaneous extending into focal intraabdominal abscess (31404). 2. Closure of focal fascial dehiscence (27188). ANESTHESIA: General. CAR SALESPERSON: Dilcia Moreno PA-C INDICATIONS FOR PROCEDURE: A 50-year-old male presenting now with subcutaneous wound infection. The patient recently had an intraabdominal abscess in the periumbilical area underlying some mesh which was evacuated and the mesh removed. The patient had a delayed primary closure then 48 hours later and presents now with recurrent purulent drainage from the incision which was located more or less slightly above and slightly below the umbilicus. Plan is to proceed with exploration of the wound under anesthesia. Potential risks of the procedure including bleeding, infection, injury to underlying viscera, possible need for more formal laparotomy depending on his operative findings were all reviewed, and the patient wishes to proceed. DETAILS OF PROCEDURE: The patient was taken to the operating room and placed in a supine position. After general endotracheal anesthesia was induced, the abdomen was prepped and draped and a Devi catheter inserted. The previous luis felipe were then removed as were the underlying subcutaneous tissue 0 Vicryl stitches. purulent material was then evacuated. Two sets of cultures were obtained. All of the purulent material was then evacuated from the subcutaneous tissue. On palpation, the patient had a focal fascial dehiscence in the superior end of the incision with some extension of the abscess cavity into a plane slightly below the fascia, i.e. into the superficial intraabdominal location. This was then evacuated as well and exploration revealed no additional purulence to be emanating from that area. The wound was then irrigated with meropenem and Zyvox containing saline solution, and once again the wound was inspected with palpation of the area around the fascial dehiscence with no additional purulence being emanated. This area was once again irrigated with Zyvox and meropenem containing saline solution. The focal fascial dehiscence was then closed with figure-of- eight stitch of #1 Vicryl stitch and the wound then packed open with iodoform gauze. The patient had bilateral transversus abdominis plane blocks placed by ultrasound guidance at this point, and the patient was taken to the recovery room in satisfactory condition. There were no evident complications. Physician financial administrative assistant, Dilcia Moreno, played an essential role in assisting in this case, helping to position the patient, retract structures as needed, as well as suturing and cutting sutures when indicated. Her presence improved patient's safety and decreased operative time. Mannie Pennington MD /[id number]
== END 2021-06-20 11:00 | disposition home or self-care (01) | DRG 856 ==
LOC: JP.MS 11:30
PROVIDERS: ADMIT Surgery; ATTEND Surgery
PROC: 0J980ZZ Drainage of Abdomen Subcutaneous Tissue and Fascia, Open Approach (ICD-10-PCS; principal; 2021-06-15)
DX: T81.43XA Infection following a procedure, organ and space surgical site, initial encounter (principal); K65.1 Peritoneal abscess; T81.31XA Disruption of external operation (surgical) wound, not elsewhere classified, initial encounter; Z68.43 Body mass index [BMI] 50.0-59.9, adult; Y83.8 Other surgical procedures as the cause of abnormal reaction of the patient, or of later complication, without mention of misadventure at the time of the procedure; I10 Essential (primary) hypertension; E66.9 Obesity, unspecified; Z20.822 Contact with and (suspected) exposure to COVID-19; F41.9 Anxiety disorder, unspecified; F32.9 Major depressive disorder, single episode, unspecified; E78.00 Pure hypercholesterolemia, unspecified; Z98.890 Other specified postprocedural states; Z98.84 Bariatric surgery status; Z79.899 Other long term (current) drug therapy
CPT/HCPCS: 0241U; 36415; 74177; 80053; 83735; 84100; 85025; 85027; 87070; 87075; 87077; 87205; 87493; 93971-26; 93971-RT; 94762; A9270-GY; C9113; J1170; J2020; J2185; J2250; J2405; J2704; J2765; J3010; J3411; J3490; J7050; J7120; J7121; Q9967

== ENCOUNTER 2021-07-24 18:13 | Emergency (ER) | payer MEDICAID ==
[2021-07-24] MEDS ORDERED: HYDROmorphone 1 MG/ML Syringe IVPUSH ONE ×2 (18:58→20:04)
[2021-07-24] MEDS ORDERED: Ondansetron 4 MG/2 ML SDV IVPUSH ONE ×2 (18:58→20:05)
[2021-07-24] MEDS ORDERED: Sodium Chloride 0.9% 1,000 ML IV SCH (19:00)
--- NOTE | 2021-07-24 19:01 | EDM.PDOC ---
ED HPI GENERAL MEDICAL PROBLEM - General Chief Complaint: Abdominal Pain Stated Complaint: TIGHTNESS IN CHEST, SIDE PAIN Time Seen by Provider: 07/24/21 18:40 Source of Information: Reports: Patient, Family, RN Notes Reviewed History Limitations: Reports: No Limitations - History of Present Illness INITIAL COMMENTS - FREE TEXT/NARRATIVE: Vahe presents today for complaints of chest pain and pressure across the upper chest for three to 4 days. Abdominal pain with cramping for 4 days. Watery diarrhea for 3 to 4 days. He denies any relieving or mitigating factors to his chest and abdominal pain. He denies SOB or difficulty breathing with his discomfort. He states he has been trying a soft diet and ate mashed potatoes with gravy and a chocolate shake. He reports a slight headache today. He denies fever, chills, vomiting or other concerns. Upper Chest Pain Score (Numeric/FACES): 10 - Related Data Allergies Allergy/AdvReac Type Severity Reaction Status Date / Time No Known Allergies Allergy Verified 07/24/21 18:59 Home Meds: Home Meds Sertraline [Zoloft] 100 mg PO DAILY 05/18/21 [History] atorvaSTATin [Lipitor] 40 mg PO BEDTIME 05/18/21 [History] buPROPion HCL [Bupropion Xl] 150 mg PO DAILY 05/18/21 [History] Acetaminophen [Tylenol Extra Strength] 500 mg PO Q6H PRN #1 bottle 05/28/21 [Rx] Ondansetron [Zofran ODT] 4 mg PO Q4H PRN #30 tab.dis 05/28/21 [Rx] Celecoxib [CeleBREX] 200 mg PO BID PRN 06/15/21 [History] Cyclobenzaprine [Flexeril] 10 mg PO TID PRN #30 tab 06/20/21 [Rx] HYDROmorphone [Dilaudid] 2 mg PO Q6H PRN #12 tablet 06/20/21 [Rx] Past Medical History - Past Health History Medical/Surgical History: Denies Medical/Surgical History Cardiovascular History: Reports: High Cholesterol, Hypertension Gastrointestinal History: Reports: Other (See Below) Other Gastrointestinal History: gastric ulcers Psychiatric History: Reports: Anxiety, Depression Endocrine/Metabolic History: Reports: Obesity/BMI 30+ - Infectious Disease History Infectious Disease History: Reports: Chicken Pox - Past Surgical History GI Surgical History: Reports: Hernia, Abdominal Social & Family History - Family History Family Medical History: No Pertinent Family History Cardiac: Reports: Heart Failure - Caffeine Use Caffeine Use: Reports: None ED ROS GENERAL - Review of Systems Review Of Systems: See Below Constitutional: Denies: Fever, Chills, Malaise, Weakness, Fatigue, Night Sweats, Diaphoresis HEENT: Reports: No Symptoms Respiratory: Reports: No Symptoms Cardiovascular: Reports: Chest Pain, Lightheadedness. Denies: Blood Pressure Problem, Claudication, Dyspnea on Exertion, Edema, Orthopnea, Palpitations, PND, Syncope Endocrine: Reports: No Symptoms GI/Abdominal: Reports: Abdominal Pain, Diarrhea, Nausea. Denies: Black Stool, Bloody Stool, Constipation, Decreased Appetite, Difficulty Swallowing, Distension, Flatus, Hematemesis, Hematochezia, Melena, Mucous in Stool, Stool Incontinence, Vomiting : Reports: No Symptoms Musculoskeletal: Reports: No Symptoms Skin: Reports: No Symptoms Neurological: Reports: No Symptoms Psychiatric: Reports: No Symptoms Hematologic/Lymphatic: Reports: No Symptoms Immunologic: Reports: No Symptoms ED EXAM, GENERAL - Physical Exam Exam: See Below Exam Limited By: No Limitations General Appearance: Alert, WD/WN, Mild Distress Eye Exam: Bilateral Eye: Normal Inspection, PERRL Ears: Normal External Exam, Normal Canal, Hearing Grossly Normal, Normal TMs Throat/Mouth: Normal Inspection, Normal Lips, Normal Gums, Normal Oropharynx, Normal Voice, No Airway Compromise Head: Atraumatic, Normocephalic Neck: Normal Inspection, Supple, Non-Tender, Full Range of Motion. No: Lymphade nopathy (R), Lymphadenopathy (L) Respiratory/Chest: No Respiratory Distress, Lungs Clear, Normal Breath Sounds, No Accessory Muscle Use, Chest Non-Tender, Decreased Breath Sounds. No: Respiratory Distress, Crackles, Rales, Rhonchi, Wheezing, Stridor, Accessory Muscle Use, Retractions, Splinting Cardiovascular: Normal Peripheral Pulses, Regular Rate, Rhythm, No Edema, No Gallop, No Murmur, No Rub Peripheral Pulses: 4+: Radial (L), Radial (R) GI/Abdominal: Normal Bowel Sounds, Soft, No Organomegaly, No Distention, No Mass, Tender, Other (Noted 4.5cm in length open abdominal wound with pink tissue wound base, no eschar, no slough or signs of necrosis. No drainage or surrounding fluctuance to healing surgical wound. ). No: Distended, Guarding, Rigid, Rebound (Male) Exam: Deferred Rectal (Males) Exam: Deferred Back Exam: Normal Inspection, Full Range of Motion, CVA Tenderness (R). No: CVA Tenderness (L) Extremities: Normal Inspection, Normal Range of Motion, Non-Tender, No Pedal Edema, Normal Capillary Refill Neurological: Alert, Oriented, Normal Cognition, Normal Gait, Normal Reflexes, No Motor/Sensory Deficits Psychiatric: Normal Affect, Normal Mood Skin Exam: Warm, Dry, No Rash, Wound/Incision (oted 4.5cm in length open abdominal wound with pink tissue wound base, no eschar, no slough or signs of ne crosis. No drainage or surrounding fluctuance to healing surgical wound. ).) Lymphatic: No Adenopathy #1 Interpretation EKG Date: 07/24/21 Time: 18:53 Rhythm: NSR Rate (Beats/Min): 78 [place]: Normal P-Wave: Present QRS: Normal ST-T: Normal QT: Normal EKG Interpretation Comments: Flipped T waves to lead III, no ST changes or ectopy noted. Course - Vital Signs Last Recorded V/S: Last Vital Signs Temp 36.4 C 07/24/21 18:56 Pulse 65 07/24/21 22:37 Resp 16 07/24/21 22:37 BP 101/46 L 07/24/21 22:37 Pulse Ox 98 07/24/21 22:37 - Orders/Labs/Meds Orders: Active Orders 24 hr Category Date Time Status Abdomen Pelvis w Cont [CT] Stat Exams 07/24/21 20:03 Taken CULTURE STOOL + SHIGATOX [RM] Stat Lab 07/24/21 19:02 Received OVA + PARASITE EXAM Stat Lab 07/24/21 19:02 Received Saline Lock Insert [OM.PC] Routine Oth 07/24/21 18:58 Ordered EKG 12 Lead [EK] Routine Ther 07/24/21 18:57 Ordered Labs: Laboratory Tests 07/24/21 07/24/21 07/24/21 Range/Units 19:07 19:07 19:07 WBC 8.6 (4.5-11.0) K/uL RBC 4.94 (4.30-5.90) M/uL Hgb 13.7 D (12.0-15.0) g/dL Hct 42.1 (40.0-54.0) % MCV 85 (80-98) fL MCH 28 (27-31) pg MCHC 33 (32-36) % Plt Count 196 (150-400) K/uL Neut % (Auto) 56.3 (36-66) % Lymph % (Auto) 29.2 (24-44) % Tucker % (Auto) 10.7 H (2-6) % Eos % (Auto) 3.2 (2-4) % Baso % (Auto) 0.6 (0-1) % D-Dimer, Quantitative 597.46 H (0.0-500.0) ng/mL Sodium 141 (140-148) mmol/L Potassium 3.8 (3.6-5.2) mmol/L Chloride 106 (100-108) mmol/L Carbon Dioxide 28 (21-32) mmol/L Anion Gap 7.1 (5.0-14.0) mmol/L BUN 17 D (7-18) mg/dL Creatinine 1.1 (0.8-1.3) mg/dL Est Cr Clr Drug Dosing 92.81 mL/min Estimated GFR (MDRD) > 60 (>60) Glucose 86 (74-106) mg/dL Calcium 9.0 (8.5-10.1) mg/dL Total Bilirubin 0.5 (0.2-1.0) mg/dL AST 32 (15-37) U/L ALT 53 (12-78) U/L Alkaline Phosphatase 123 H (46-116) U/L Troponin I < 0.017 (0.000-0.056) ng/mL NT-Pro-B Natriuret Pep 48 (5-125) pg/mL Total Protein 6.6 (6.4-8.2) g/dL Albumin 3.1 L (3.4-5.0) g/dL Globulin 3.5 (2.3-3.5) g/dL Albumin/Globulin Ratio 0.9 L (1.2-2.2) Occult stool positive for blood D-dimer elevated We will complete CT with PE protocol of chest, CT of abdomen and pelvis with IV contrast. Meds: Medications Discontinued Medications Generic Name Dose Route Start Last Admin Trade Name Freq PRN Reason Stop Dose Admin Hydromorphone HCl 1 mg 07/24/21 18:58 07/24/21 19:22 Hydromorphone 1 Mg/Ml Syringe IVPUSH 07/24/21 18:59 1 mg ONETIME ONE Administration Hydromorphone HCl 1 mg 07/24/21 20:04 07/24/21 20:15 Hydromorphone 1 Mg/Ml Syringe IVPUSH 07/24/21 20:05 1 mg ONETIME ONE Administration Sodium Chloride 1,000 mls @ 500 mls/hr 07/24/21 19:00 07/24/21 19:21 Normal Saline IV 500 mls/hr ASDIRECTED FANI Administration Sodium Chloride 100 mls @ 3 mls/sec 07/24/21 20:15 07/24/21 20:45 Normal Saline IV 3 mls/sec ASDIRECTED FANI Administration Iopamidol 100 ml 07/24/21 20:15 07/24/21 20:45 Iopamidol 755 Mg/Ml 100 Ml Bottle IV 100 ml . DIRECTED FANI Administration Ondansetron HCl 4 mg 07/24/21 18:58 07/24/21 19:22 Ondansetron 4 Mg/2 Ml Sdv IVPUSH 07/24/21 18:59 4 mg ONETIME ONE Administration Ondansetron HCl 4 mg 07/24/21 20:05 07/24/21 20:15 Ondansetron 4 Mg/2 Ml Sdv IVPUSH 07/24/21 20:06 4 mg ONETIME ONE Administration Sodium Chloride 10 ml 07/24/21 18:58 07/24/21 20:45 Sodium Chloride 0.9% 10 Ml Syringe FLUSH 10 ml ASDIRECTED PRN Administration Keep Vein Open Sodium Chloride 10 ml 07/24/21 20:09 07/24/21 21:33 Sodium Chloride 0.9% 10 Ml Syringe FLUSH 07/24/21 20:10 10 ml ONETIME ONE Administration - Radiology Interpretation Free Text/Narrative:: CTA of chest, abdominal/pelvis CT completed: Nondiagnostic study for pulmonary embolism, detection due to poor opacification of the pulmonary arteries. Minimal atelectasis in both lungs. Anterior abdominal wound is healed or mostly healed. Previously seen fluid collection in the deep aspect of the anterior abdominal wall has resolved. No new fluid collection. no acute abnormality in the abdomen or pelvis. Fatty infiltration of the liver. 3mm pulmonary nodule in the right middle lobe. Discussed findings with Dr. Gu, he agrees patient has no acute findings and can be discharged. - Re-Assessments/Exams Free Text/Narrative Re-Assessment/Exam: 07/24/21 20:06 Patient complains of no improvement in pain or nausea, additional dilaudid and ondansetron ordered. 07/24/21 20:45 Patient reports improvement of pain and nausea, resting on left side with room light down. Patient significant other at bedside. 07/24/21 21:30 Patient continues to rest, no complaints at this time. 07/24/21 22:[address] results [address] Dr. Gu, he agrees with CT results, no acute findings, no acute PE. Patient can be discharged to home with follow up. Discussed CT results with patient and significant other. No acute findings noted. Discussed eating, food choices and portion size. Patient and his significant other verbalized understanding. All their questions were answered. They are in agreement with plan for discharge and keeping appointment with Dilcia JONES in 5 days. Departure - Departure Time of Disposition: 22:09 Disposition: Home, Self-Care 01 Condition: Good Clinical Impression: Abdominal pain, Occult blood positive stool Instructions: Abdominal Pain, Adult Referrals: PCP,None [Primary Care Provider] - Forms: ED Department Discharge Additional Instructions: You have been evaluated and treated for chest pain/abdominal pain status post GI surgery. Take metoclopramide 5mg by mouth every 6 hours for nausea. Take tylenol as needed for pain. Take tramadol 50mg, one to two pills up to three times a day as needed for uncontrolled abdominal pain. Dress abdominal wound that continues to heal as instructed. Avoid potatoes until feeling better. Try use of smaller eating utensils to get use to taking smaller bites of food. Follow up with Dilcia JONES as scheduled this week. Return for any worsening, issues or concerns. Sepsis Event Note (ED) - Focused Exam Vital Signs: Vital Signs Temp Pulse Resp BP Pulse Ox 07/24/21 22:37 65 16 101/46 L 98 07/24/21 21:30 62 16 91/36 L 97 07/24/21 20:30 73 16 135/65 98 07/24/21 19:30 81 16 133/79 98 07/24/21 18:56 36.4 C 88 13 137/85 97 07/24/21 18:30 36.4 C 88 13 137/85 97 - My Orders Last 24 Hours: My Active Orders 07/24/21 18:57 EKG 12 Lead [EK] Routine 07/24/21 18:58 Saline Lock Insert [OM.PC] Routine 07/24/21 19:02 CULTURE STOOL + SHIGATOX [RM] Stat OVA + PARASITE EXAM Stat 07/24/21 20:03 Abdomen Pelvis w Cont [CT] Stat - Assessment/Plan Last 24 Hours: My Active Orders 07/24/21 18:57 EKG 12 Lead [EK] Routine 07/24/21 18:58 Saline Lock Insert [OM.PC] Routine 07/24/21 19:02 CULTURE STOOL + SHIGATOX [RM] Stat OVA + PARASITE EXAM Stat 07/24/21 20:03 Abdomen Pelvis w Cont [CT] Stat Assessment:: Abdominal pain Occult blood positive stool Plan: Patient evaluated and treated for chest pain/abdominal pain status post GI surgery. + occult stool, Hgb stable and increasing. Follow up with Dilcia JONES as scheduled in 5 days for recheck. Take metoclopramide 5mg by mouth every 6 hours for nausea. Take tylenol as needed for pain. Take tramadol 50mg, one to two pills up to three times a day as needed for uncontrolled abdominal pain. Dress abdominal wound that continues to heal as instructed. Avoid potatoes until feeling better. Try use of smaller eating utensils to get use to taking smaller bites of food. Follow up with Dilcia JONES as scheduled this week. Return for any worsening, issues or concerns. Make sure to follow up with repeat CT of chest for 3mm right middle lobe pulmonary nodule in 12 months or per primary provider recommendations.
[2021-07-24] MEDS: Sodium Chloride 0.9% 10 ML Syringe FLUSH PRN ×2 (19:22→20:45)
[2021-07-24] MEDS ORDERED: Sodium Chloride 0.9% 10 ML Syringe FLUSH ONE (20:09)
[2021-07-24] MEDS ORDERED: Sodium Chloride 0.9% 100 ML IV SCH (20:15)
[2021-07-24] MEDS ORDERED: Iopamidol 755 Mg/ML 100 ML Bottle IV SCH (20:15)
--- NOTE | 2021-07-24 21:48 | CRLCT ---
For Patients: As a result of the 21st Century Cures Act, medical imaging exams and procedure reports are released immediately into your electronic medical record. You may view this report before your referring provider. If you have questions, please contact your health care provider. HISTORY: Chest pain. Elevated D-dimer. Abdominal pain. TECHNIQUE: CT chest with IV contrast, pulmonary embolism protocol. CT abdomen and pelvis with IV contrast. 100 mL Isovue 370 IV. COMPARISON: CT abdomen and pelvis 06/19/2021. FINDINGS: Chest: Pulmonary arteries: Nondiagnostic opacification of the pulmonary arteries. Main pulmonary artery is normal caliber. Lungs: Central airways are patent. Minimal atelectasis in the lingula in the dependent aspects of both lower lobes. No airspace consolidation. 3 mm noncalcified nodule in the right middle lobe (series 5, image 76). No pleural effusion or pneumothorax. Mediastinum: Thoracic aorta is normal caliber. No pericardial effusion. Lymph nodes: No lymphadenopathy. --- Abdomen: Diffusely decreased attenuation of the liver. No liver mass. No bile duct dilation. No pancreatic mass or pancreatic duct dilation. No spleen lesions. No adrenal nodules. Kidneys enhance symmetrically. Punctate hypodense lesion in the mid left kidney is too small to characterize but is likely a cyst and is unchanged. No hydronephrosis. Partial gastrectomy with Amilcar-en-Y reconstruction. No dilated bowel. Postoperative changes in the anterior abdominal wall. Incision appears healed are mostly healed with mild patchy infiltration of underlying subcutaneous fat. Fluid collection has resolved. No new fluid collection. No free fluid. Appendix is unremarkable. No lymphadenopathy. Abdominal aorta is normal caliber. Pelvis: No lymphadenopathy. --- Musculoskeletal: Mild degenerative changes of the spine and sacroiliac joints. IMPRESSION: 1. Nondiagnostic study for pulmonary embolism detection due to poor opacification of the pulmonary arteries. 2. Minimal atelectasis in both lungs. 3. Anterior abdominal wound is healed or mostly healed. Previously seen fluid collection in the deep aspect of the anterior abdominal wall has resolved. No new fluid collection. 4. No acute abnormality in the abdomen or pelvis. 5. Fatty infiltration of the liver. 6. 3 mm pulmonary nodule in the right middle lobe. If patient is at high risk for malignancy consider follow-up chest CT in 12 months. Please note that all CT scans at this facility use dose modulation, iterative reconstruction, and/or weight-based dosing when appropriate to reduce radiation dose to as low as reasonably achievable. Dictated by Devon Carvajal MD @ 07/24/2021 9:46:34 PM (Electronically Signed)
--- NOTE | 2021-07-26 06:52 | CRLCT ---
Final Report: ----- ADDENDUM ----- HISTORY: Chest pain. Elevated D-dimer. Abdominal pain. TECHNIQUE: CT chest with IV contrast, pulmonary embolism protocol. CT abdomen and pelvis with IV contrast. 100 mL Isovue 370 IV. COMPARISON: CT abdomen and pelvis 06/19/2021. FINDINGS: Chest: Pulmonary arteries: Nondiagnostic opacification of the pulmonary arteries. Main pulmonary artery is normal caliber. Lungs: Central airways are patent. Minimal atelectasis in the lingula in the dependent aspects of both lower lobes. No airspace consolidation. 3 mm noncalcified nodule in the right middle lobe (series 5, image 76). No pleural effusion or pneumothorax. Mediastinum: Thoracic aorta is normal caliber. No pericardial effusion. Lymph nodes: No lymphadenopathy. --- Abdomen: Diffusely decreased attenuation of the liver. No liver mass. No bile duct dilation. No pancreatic mass or pancreatic duct dilation. No spleen lesions. No adrenal nodules. Kidneys enhance symmetrically. Punctate hypodense lesion in the mid left kidney is too small to characterize but is likely a cyst and is unchanged. No hydronephrosis. Partial gastrectomy with Amilcar-en-Y reconstruction. No dilated bowel. Postoperative changes in the anterior abdominal wall. Incision appears healed are mostly healed with mild patchy infiltration of underlying subcutaneous fat. Fluid collection has resolved. No new fluid collection. No free fluid. Appendix is unremarkable. No lymphadenopathy. Abdominal aorta is normal caliber. Pelvis: No lymphadenopathy. --- Musculoskeletal: Mild degenerative changes of the spine and sacroiliac joints. IMPRESSION: 1. Nondiagnostic study for pulmonary embolism detection due to poor opacification of the pulmonary arteries. 2. Minimal atelectasis in both lungs. 3. Anterior abdominal wound is healed or mostly healed. Previously seen fluid collection in the deep aspect of the anterior abdominal wall has resolved. No new fluid collection. 4. No acute abnormality in the abdomen or pelvis. 5. Fatty infiltration of the liver. 6. 3 mm pulmonary nodule in the right middle lobe. If patient is at high risk for malignancy consider follow-up chest CT in 12 months. Dictated by Devon Carvajal MD @ Jul 24 2021 9:46PM Signed by: Devon Carvajal MD @07/24/2021 9:47:08 PM (Electronic Signature) MTDD
== END 2021-07-24 22:39 | disposition home or self-care (01) ==
LOC: JP.ED 18:13
DX: R19.5 Other fecal abnormalities (principal); R10.9 Unspecified abdominal pain; I10 Essential (primary) hypertension; E78.00 Pure hypercholesterolemia, unspecified; E66.9 Obesity, unspecified; Z68.42 Body mass index [BMI] 45.0-49.9, adult; Z79.899 Other long term (current) drug therapy
CPT/HCPCS: 36415; 71275; 74177; 80053; 82272; 83880; 84484; 85025; 85379; 87046; 87177; 87209; 87899; 89055; 93005; 96374; 96375; 96376; 99285; J1170; J2405; J7030; Q9967